=== PATIENT | female | born 1965 | race Caucasian/White ===

== ENCOUNTER 2020-04-28 14:01 | Outpatient (CLI) | payer OTHER, SELFPAY ==
--- NOTE | ~2020-04-28 | US_ITS ---
EXAMINATION: US art doppler w press LE BI DATE: 04/28/2020 14:53 INDICATION: Peripheral arterial disease. TECHNIQUE: Segmental pressures and plethysmographic and Doppler waveforms of the brachial and lower e xtremity arteries were obtained. COMPARISON: None. FINDINGS: Right and left brachial artery pressures of 141 mm Hg and 147 mm Hg, respectively, are concordant (no rmal difference <= 30 mmHg). The right high-thigh pressure index is 1.05 (normal > 1.2). The right ankle-brachial index (PETER) is 0 .86 (normal >= 0.9-1.0). The right great toe-brachial index (TBI) is 0.65 (normal >= 0.65). The right lower extremity segmental pressure gradients are normal (normal gradients <= 20-30 mmHg between khris cent levels on the same leg or the same levels on the two legs). Arterial Doppler waveforms are bipha sic from common femoral artery to the ankle. The left high-thigh pressure index is 0.76. The left PETER is 0.62. The left TBI is 0.41. The left lowe r extremity segmental pressure gradients are normal. Arterial Doppler waveforms are biphasic from com mon femoral artery to the ankle. IMPRESSION: 1. Mildly decreased right PETER and moderately decreased left PETER, consistent with arterial occlusive d isease, likely prominently in the aortoiliofemoral distributions. Reviewed, dictated and finalized at location A. IAL DISTRIBUTION CLERK IMPRESSION: 1. Mildly decreased right PETER and moderately decreased left PETER, consistent wit h arterial occlusive disease, likely prominently in the aortoiliofemoral distri butions.
== END 2020-04-28 14:02 | disposition home or self-care (01) ==
PROVIDERS: Visit Provider Podiatrist Foot & Ankle Surgery
DX: I73.9 Peripheral vascular disease, unspecified (principal)
CPT/HCPCS: 93923

== ENCOUNTER 2020-11-12 10:36 | Outpatient (CLI) | payer OTHER, SELFPAY ==
--- NOTE | ~2020-11-12 | CT_ITS ---
EXAMINATION: CT lung screening EXAM DATE: 11/12/2020 11:07 INDICATION: Z87.891 - Personal history of nicotine dependence TECHNIQUE: Spiral low dose CT of the chest without contrast. Axial, coronal and sagittal images were reviewed. The dose-length product (DLP) for this examination was 454.19 mGy-cm. The exposure was t ailored according to patient size (auto mA exposure control), and iterative reconstruction (ASIR) was used as additional dose reduction technique. Comparison is made to prior examination from 12/11/2017. FINDINGS: The lungs are clear. There is mild emphysema. Tracheobronchial tree is patent. There is no mediastinal, hilar or axillary lymphadenopathy. There are no pleural or pericardial effusions. There is no pneumothorax. Heart normal in size. There is mild to moderate coronary arterial calc ification, arterial sclerosis. Surgical changes along stomach greater curvature. Cholecystectomy c lips. There is thoracic spondylosis without osteoblastic or osteolytic lesions identified. IMPRESSION: Lung-RADS category 1, negative (<1%chance of malignancy); recommend continued LDCT screen ing in 1 year. > Reviewed, dictated and finalized at location B. IMPRESSION: Lung-RADS category 1, negative (<1%chance of malignancy); recommend continued LDCT screening in 1 year. >
== END 2020-11-12 10:37 | disposition home or self-care (01) ==
LOC: ANHIMG 10:42
PROVIDERS: Visit Provider Nurse Practitioner Family
DX: Z12.2 Encounter for screening for malignant neoplasm of respiratory organs (principal); Z87.891 Personal history of nicotine dependence
CPT/HCPCS: 71271

== ENCOUNTER 2021-11-14 10:48 | Outpatient (CLI) | payer OTHER, SELFPAY ==
--- NOTE | ~2021-11-14 | CT_ITS ---
EXAMINATION: CT lung screening DATE: 11/14/2021 11:08 INDICATION: Personal history of nicotine dependence TECHNIQUE: Computed tomography (CT) of the chest was performed without intravenous contrast. The dose -length product was 402.65 mGy-cm. Automated exposure control and iterative reconstruction technique were employed. COMPARISON: CT dated 11/12/2020 FINDINGS: Trace pericardial effusion. No significant pleural or pericardial effusion. There are surgi jay changes consistent with previous cholecystectomy and gastric bypass surgery. There is atheroscler osis of the aorta and coronary arteries. There is a 6 mm groundglass nodule in the left upper lobe, i mage 30. There are a few scattered 1-2 mm nodules in the upper lobes predominantly. No endobronchial lesions. There are focal groundglass densities in the right lower lobe. Mild thoracic spondylosis. No acute osseous abnormality. IMPRESSION: 1. Lung-RADS category 2: Benign appearance or behavior. Continue annual screening with noncontrast lo w-dose chest CT in 12 months. Reviewed, dictated and finalized at location A. IMPRESSION: 1. Lung-RADS category 2: Benign appearance or behavior. Continue annual screeni ng with noncontrast low-dose chest CT in 12 months.
== END 2021-11-14 10:49 | disposition home or self-care (01) ==
PROVIDERS: Visit Provider Nurse Practitioner Family
DX: Z12.2 Encounter for screening for malignant neoplasm of respiratory organs (principal); Z87.891 Personal history of nicotine dependence
CPT/HCPCS: 71271

== ENCOUNTER → 2022-01-12 12:30 | Outpatient (CLI) | payer OTHER, SELFPAY ==
--- NOTE | ~2022-01-12 | MR_ITS ---
EXAMINATION: MR wrist LT wo con DATE: 01/12/2022 13:11 INDICATION: Left wrist pain. TECHNIQUE: Magnetic resonance imaging (MRI) of the left wrist was performed without intravenous contr ast. Sequences performed include axial PD-weighted FSE and PD-weighted FS FSE, coronal PD-weighted FS FSE and T1-weighted SE, and sagittal PD-weighted FS FSE and PD-weighted FSE. COMPARISON: None FINDINGS: Intrinsic ligaments: Partial tear at the central membranous component of the scapholunate ligament. The physiologically si gnificant dorsal and volar components of the ligament remain normal. The lunotriquetral ligament is n ormal. Triangular fibrocartilage complex (TFCC): The triangular fibrocartilage including its foveal and styloid attachments as well as the dorsal and volar radioulnar ligaments are normal. The ulnar collateral ligament, ulnotriquetral ligament and men iscal homologue are normal. The extensor carpi ulnaris tendon sheath is normal. Extensor wrist: Mild tendinopathy and focal longitudinal split tear of the extensor carpi ulnaris tendon at the level of the tip of the ulnar styloid process. The more proximal and distal tendon remain normal. More pro minent thickening and mild increased signal without discrete tear of the distalmost abductor pollicis longus tendon which could be related to either tendinopathy or posttraumatic contusion without discr ete tear The remaining extensor tendons of the wrist are normal. No tenosynovitis. Flexor wrist: The flexor tendons of the wrist are normal. No abnormality in the carpal tunnel with normal median n erve. Guyon's canal: Guyon's canal including the ulnar nerve and artery are normal. Bones/other: Mild bone marrow edema at the palmar aspect of the trapezium with some overlying mild soft tissue javed ma which given history of recent fall could be most consistent with a posttraumatic bone and soft tis pedro contusion. Otherwise normal marrow signal. No fracture, erosions, avascular necrosis or abnormal marrow replacing process. Joint spaces are normal with no focal cartilage defects appreciated. Subtl e edema in the subcutaneous tissues at the palmar/radial aspect of the carpus IMPRESSION: 1. Bone contusion without discrete fracture at the palmar aspect of the trapezium with mild overlying soft tissue edema. 2. Tendinopathy without discrete tear at the distalmost abductor pollicis longus which given history of trauma and proximity to the trapezium marrow edema and overlying soft tissue edema as well as refl ex post traumatic contusion. 3. Focal mild tendinopathy and longitudinal split tear of the extensor carpi ulnaris tendon at the le gigi of the tip of the ulnar styloid process. 4. Small partial tear of the central membranous component of the scapholunate ligament with normal ap pearance to the physiologically significant dorsal and volar components of the ligament. Reviewed, dictated and finalized at location A. IMPRESSION: 1. Bone contusion without discrete fracture at the palmar aspect of the trapezi um with mild overlying soft tissue edema. 2. Tendinopathy without discrete tear at the distalmost abductor pollicis longu s which given history of trauma and proximity to the trapezium marrow edema and overlying soft tissue edema as well as reflex post traumatic contusion. 3. Focal mild tendinopathy and longitudinal split tear of the extensor carpi ul naris tendon at the level of the tip of the ulnar styloid process. 4. Small partial tear of the central membranous component of the scapholunate l igament with normal appearance to the physiologically significant dorsal and vo lar components of the ligament.
== END ==
PROVIDERS: Visit Provider Orthopaedic Surgery
DX: S66.912A Strain of unspecified muscle, fascia and tendon at wrist and hand level, left hand, initial encounter (principal); S63.502A Unspecified sprain of left wrist, initial encounter; M89.9 Disorder of bone, unspecified
CPT/HCPCS: 73221

== ENCOUNTER → 2022-04-10 13:18 | Outpatient (CLI) | payer OTHER, SELFPAY ==
--- NOTE | ~2022-04-10 | XR_ITS ---
EXAMINATION: XR chest 2V 04/10/2022 13:37 INDICATION: Cough PROCEDURE: 2 view chest COMPARISON: 11/22/2016 FINDINGS: The lungs are clear. The cardiomediastinal silhouette is within normal limits. There are no pleural effusions. There is no pneumothorax suspected. IMPRESSION: 1: NO ACUTE CARDIOPULMONARY DISEASE. Reviewed, dictated and finalized at location A. TAGGER
== END ==
PROVIDERS: Visit Provider Nurse Practitioner Family
DX: R05.9 Cough, unspecified (principal); R06.00 Dyspnea, unspecified; M54.9 Dorsalgia, unspecified
CPT/HCPCS: 71046

== ENCOUNTER 2022-04-14 12:00 | Outpatient (CLI) | payer OTHER, SELFPAY ==
[2022-04-14 12:56] LABS: Influenza A QL RT-PCR Negative (Negative); Influenza B QL RT-PCR Negative (Negative); RSV RNA, RT-PCR Negative (Negative); SARS-CoV-2 RNA PCR Negative
== END 2022-04-14 12:01 | disposition home or self-care (01) ==
LOC: ANHLAB 12:01
PROVIDERS: Visit Provider Nurse Practitioner Family
DX: R06.00 Dyspnea, unspecified (principal); R05.9 Cough, unspecified
CPT/HCPCS: 87637

== ENCOUNTER 2022-04-21 10:24 | Outpatient (CLI) | payer OTHER, SELFPAY ==
[2022-04-21 11:49] LABS: Basophils Absolute Auto 0.1 K/mm3 (0.0-0.1); Basophils Percent Auto 0.7 % (0.2-1.2); Eosinophils Absolute Auto 0.4 K/mm3 (0-0.3); Eosinophils Percent Auto 2.7 % (0-4.4); Hematocrit 39.2 % (37.0-47.0); Hemoglobin 13.1 g/dL (12.0-15.0); Immature Granulocyte Absolute 0.08 K/mm3 (0.00-0.031); Immature Granulocyte Percent A 0.6 % (0-0.5); Lymphocytes Absolute Auto 3.84 K/mm3 (0.9-3.2); Lymphocytes Percent Auto 27.7 % (18.3-44.2); Mean Corpuscular HGB Conc 33.4 g/dl (32-36); Mean Corpuscular Volume 89.7 fl (80-100); Monocytes Absolute Auto 0.8 K/mm3 (0.1-0.6); Monocytes Percent Auto 5.8 % (2.6-8.5); Neutrophils Absolute Auto 8.7 K/mm3 (1.3-6.7); Neutrophils Percent Auto 62.5 % (45.5-73.1); Platelet Count Result 308 k/mm3 (150-375); Red Blood Count 4.37 M/mm3 (4.2-5.4); Red Cell Distribution Width 14.9 % (11.5-14.5); White Blood Count 13.9 K/mm3 (4.5-10.0)
[2022-04-26 00:29] LABS: Immunoglobulin E 13 kU/L (<=114)
== END 2022-04-21 10:25 | disposition home or self-care (01) ==
LOC: ANHLAB 10:25
PROVIDERS: PCP Nurse Practitioner Family; Visit Provider Nurse Practitioner Family
DX: J45.909 Unspecified asthma, uncomplicated (principal)
CPT/HCPCS: 36415; 82785; 85025

== ENCOUNTER 2022-11-27 08:44 | Outpatient (CLI) | payer OTHER, SELFPAY ==
--- NOTE | ~2022-11-27 | CT_ITS ---
CT Scan of the Chest without Contrast: Clinical Indication: Lung cancer screening, smoking history Technique: Contiguous sections were acquired throughout the chest without intravenous contrast. Dose reduction technique was used on this scan by utilizing automated exposure control and iterative recon struction technique. The dose-length product (DLP) was 469.09 mGy-cm. COMPARISON: 11/14/2021, 11/12/2020 Findings: There is no evidence of any significant mediastinal, hilar or axillary lymphadenopathy. Coronary billie ry calcifications are noted. There is no evidence of pleural or pericardial effusion. The lungs are clear. No pulmonary nodules or infiltrates are noted. Images through the upper abdomen reveal no abnormalities. Impression: Lung RADS 1: Negative. 12 month follow-up screening CT advised. Reviewed, dictated and finalized at [facility]. Impression: Lung RADS 1: Negative. 12 month follow-up screening CT advised.
== END 2022-11-27 08:45 | disposition home or self-care (01) ==
PROVIDERS: PCP Nurse Practitioner Family; Visit Provider Nurse Practitioner Family
DX: Z12.2 Encounter for screening for malignant neoplasm of respiratory organs (principal); Z87.891 Personal history of nicotine dependence
CPT/HCPCS: 71271

== ENCOUNTER 2023-05-21 10:50 | Outpatient (CLI) | payer OTHER, SELFPAY ==
--- NOTE | ~2023-05-21 | XR_ITS ---
AP and oblique views of the left ribs, and PA and lateral chest radiographs Clinical History: Pain Findings: No rib fracture is seen. Osseous alignment is anatomic. Lungs are clear, without focal cons olidation or pleural effusion. Cardiomediastinal contour is within normal limits. Soft tissues are un remarkable. Impression: No rib fracture is seen. Reviewed, dictated and finalized at [facility]. MAN Impression: No rib fracture is seen.
== END 2023-05-21 10:51 | disposition home or self-care (01) ==
LOC: ANHIMG 10:52
PROVIDERS: PCP Nurse Practitioner Family; Visit Provider Nurse Practitioner Family
DX: R06.09 Other forms of dyspnea (principal); S29.9XXA Unspecified injury of thorax, initial encounter; X58.XXXA Exposure to other specified factors, initial encounter
CPT/HCPCS: 71046; 71100

== ENCOUNTER 2023-11-29 08:09 | Outpatient (CLI) | payer OTHER, SELFPAY ==
--- NOTE | ~2023-11-29 | CT_ITS ---
EXAMINATION: CT lung screening DATE: 11/29/2023 08:28 INDICATION: Lung cancer screening. History of tobacco dependence. TECHNIQUE: Computed tomography (CT) of the chest was performed without intravenous contrast. The dose -length product was 202.31 mGy-cm. Automated exposure control and iterative reconstruction technique were employed. COMPARISON: CT dated 11/27/2022 FINDINGS: No significant pleural or pericardial effusion. Heart size normal. No significant pleural o r pericardial effusion. No thoracic lymphadenopathy. Status post cholecystectomy. No endobronchial le sions. No pneumothorax. There are surgical changes in the stomach. There is atherosclerosis of the ao rta and coronary arteries. No suspicious pulmonary nodules or masses. IMPRESSION: 1. Lung-RADS category 1: Negative. Continue annual screening with noncontrast low-dose chest CT in 12 months. Reviewed, dictated and finalized at location B. IMPRESSION: 1. Lung-RADS category 1: Negative. Continue annual screening with noncontrast l ow-dose chest CT in 12 months.
== END 2023-11-29 08:10 | disposition home or self-care (01) ==
PROVIDERS: Visit Provider Nurse Practitioner Family
DX: Z12.2 Encounter for screening for malignant neoplasm of respiratory organs (principal); Z87.891 Personal history of nicotine dependence
CPT/HCPCS: 71271

== ENCOUNTER 2024-12-01 09:34 | Outpatient (CLI) | payer OTHER, SELFPAY ==
--- NOTE | ~2024-12-01 | CT_ITS ---
CT Scan of the Chest without Contrast: Clinical Indication: Lung cancer screening, nicotine dependence Technique: Contiguous sections were acquired throughout the chest without intravenous contrast. Dose reduction technique was used on this scan by utilizing automated exposure control and iterative recon struction technique. The dose-length product (DLP) was 106.64 mGy-cm. COMPARISON: 11/29/2023 Findings: There is no evidence of any significant mediastinal, hilar or axillary lymphadenopathy. The mediastin al soft tissues appear normal. There is no evidence of pleural or pericardial effusion. 3 mm right upper lobe nodule present (axial image 30). Images through the upper abdomen reveal no abnormalities. Impression: Lung RADS 2: Benign appearance. 12 month follow-up screening CT advised. Reviewed, dictated and finalized at location . Impression: Lung RADS 2: Benign appearance. 12 month follow-up screening CT advised.
--- OUTSIDE RECORDS SUMMARY | 2024-12-01 09:57 | XMS_ITS | Clinical Summary ---
Author Organization [facility] Address [address] [place] [address] Care Team Providers Care Java Software Developer Name Role Phone Catrachito Schultz MD Primary Care Provider [phone] Allergies Active Allergy Reactions Criticality Noted Date Comments Adenosine Shortness of Breath High 12/29/2021 Sulfa Antibiotics Rash,Hives High 09/24/2012 Medications albuterol sulfate HFA 108 (90 Base) MCG/ACT inhaler 2 Active ALPRAZolam 0.25 MG tablet 1 Active atenolol 100 MG tablet 2 Active buPROPion XL 300 MG 24 hr tablet 2 Active TRULICITY 0.75 MG/0.5ML injection ADMINISTER 0.75 MG UNDER THE SKIN EVERY 7 DAYS 1 Active escitalopram 5 MG tablet 2 Active HUMALOG 100 UNIT/ML injection (VIAL) 2 Active levothyroxine 100 MCG tablet Take 100 mcg by mouth. Active metFORMIN ER 500 MG 24 hr tablet 1 Active montelukast 10 MG tablet 2 Active nortriptyline 25 MG capsule 1 Active rosuvastatin 40 MG tablet 2 Active Active Problems Problem Noted Date Diagnosed Date S/P cervical spinal fusion 10/12/2022 Vertigo 03/22/2021 Lumbar radiculopathy 03/22/2021 Immunizations Immunization Administration Dates Next Due MODERNA COVID-19 (12+) MRNA, LNP-S, PF, 100 MCG/ 0.5 ML DOSE 06/08/2020,05/11/2020 Social History Tobacco Use Types Packs/Day Years Used Date Smoking Tobacco: Former Cigarettes Q uit: 2019 Smokeless Tobacco: Never Alcohol Use Standard Drinks/Week Comments Yes 0 (1 standard drink = 0.6 oz pur e alcohol) rarely Comments No Sex and Gender Information Value Date Recorded Sex Assigned at Female 07/02/2024 3:36 PM LINING IRONER Legal Sex Female 5:52 PM CDT Gender Identity Not on file Sexual Orientation Not on file Last Filed Vital Signs Vital Sign Reading Time Taken Comments Blood Pressure 151/51 12/29/2021 4:06 PM CDT Pulse 72 12/29/2021 4:06 PM CDT Temperature 36.2 C (97.2 F) 12/29/2021 4:08 PM CDT Respiratory Rate 18 12/29/2021 4:06 PM CDT Oxygen Saturation 97% 12/29/2021 4:06 PM CDT Inhaled Oxygen Concentration - - Weight 109.8 kg (242 lb) 12/29/2021 4:06 PM CDT Height 162.6 cm (5' 4) 12/29/2021 4:06 PM CDT Body Mass Index 41.54 12/29/2021 4:06 PM CDT Plan of Treatment Health Maintenance Due Date Last Done Comments Colorectal Cancer Screening Colonoscopy (10 Years) 1965 Annual Physical 1967 COVID-19 Vaccine ( season) 2024 06/08/2020, 05/11/2020 RSV Immunization or 60+ Years (1 - Risk 60-74 years 1-dose series) 2024 DTaP, Tdap and Td Vaccines (3 - Td or Tdap) 11/19/2024 11/19/2014, 10/28/2010 Mammogram Screening 08/02/2025 08/03/2023, 03/29/2022, 01/26/2021, Additional history exists Zoster Vaccines Completed 10/27/2022, 11/18/2021 Pneumococcal Vaccine: 50+ Years Completed 01/31/2023, 03/15/2016 Hepatitis C Completed 05/19/2024, 05/19/2024 Meningococcal B Vaccine Aged Out No l onger eligible based on patient's age to complete this topic Meningococcal Vaccine Aged Out No brittani master eligible based on patient's age to complete this topic RSV Immunizations Under 20 Months Aged Out No longer eligible based on patient's age to complete this topic Insurance [facility] Care Teams Java Software Developer Relationship Specialty Start Date End Date Catrachito Schultz MD [address] [facility] [address] [place] [address] PCP - General INTERNAL MEDICINE 10/03/21
--- OUTSIDE RECORDS SUMMARY | 2024-12-01 09:59 | XMS_ITS | Encounter Summary ---
Author Organization [facility] Address [address] [address] Care Team Providers Care 411 Directory Assistance Operator Name Role Phone Catrachito Schultz MD Primary Care Provider [phone] Catrachito Schultz MD Primary Care Provider [phone] Roland Jerome MD Unavailable Michael Mullen MD Unavailable [phone] Unruly Borges Unavailable [phone] Catrachito Schultz MD Primary Care Provider [phone] Encounter Details Date Type Department Care Team (Late st Contact Info) Description 09/01/2016 Orders Only [facility] Provider, MD Brandt [address] [place] [id number] Social History Tobacco Use Types Packs/Day Years Used Date Smoking Tobacco: Heavy Smoker Comments:Smoking History Pac ks/day: 10 Cigarettes Alcohol Use Standard Drinks/Week Comments Yes 0 (1 standard drink = 0.6 oz pur e alcohol) Comments Unknown Sex and Gender Information Value Date Recorded Sex Assigned at Not on file Legal Sex Female 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 us Historical Provider [facility] Final Result documented in this encounter Visit Diagnoses Not on filedocumented in this encounter Additional Health Concerns Infection Onset Date Last Indicated Resolved Time COVID: Recovered Comment:06/06/21: Patient COVID+ at [facility] 05/22/21 (scan can be seen in Media tab). Patient was not hospitalized. Reports symptoms have resolved, including fever. It has been >10 days since symptom onset. Patient not severely immunocompromised and did not require home O2. Patient satisfies COVID: Recovered criteria. Repeat testing not recommended for 120 days following Recovered period onset date of 06/02/21. Janelle Caldwell 06/02/2021 06/06/2021 09/30/2021 3:05 AM C DT COVID: Suspected 08/27/2023 08/27/2023 08/27/2023 7:37 PM CDT COVID: Suspected 06/23/2024 06/23/2024 06/23/2024 5:51 PM SPOOLING MACHINE OPERATOR Influenza, adult 06/23/2024 06/23/2024 06/30/2024 3:07 AM SPOOLING MACHINE OPERATOR documented as of this encounter Care Teams 411 Directory Assistance Operator Relationship Specialty Start Date End Date Catrachito Schultz MD PCP - General 08/04/16 02/15/21 Catrachito Schultz MD PCP - General Internal Medicine 03/01/21 07/16/22 Catrachito Schultz MD [address] [facility] [address] [place] [address] PCP - General Internal Medicine 07/17/22 Roland Jerome MD [address] [facility] [address] [place] [address] Surgeon Neurosurgery 05/07/14 Michael Mullen MD [address] [facility] [address] [address] Surgeon Orthopedic Surgery 05/07/22 Unruly Borges PA [address] [facility] [address] [address] Physician Steel Pourer Helper Neurosurgery 07/04/22 documented as of this encounter
--- OUTSIDE RECORDS SUMMARY | 2024-12-01 10:00 | XMS_ITS | Clinical Summary ---
Author Organization [facility] Address [address] [place] [address] Care Team Providers Care Order Expediter Name Role Phone Roland Jerome MD Unavailable [phone] Michael Mullen MD Unavailable [phone] Unruly Borges Unavailable [phone] Catrachito Schultz MD Primary Care Provider [phone] Allergies Active Allergy Reactions Criticality Noted Date Comments Adenosine Shortness of breath High Sulfa (Sulfonamide Antibiotics) Hives,Rash High Medications montelukast (SINGULAIR) 10 mg tablet Take 1 tablet (10 mg total) by mouth nightly Active cholecalciferol (VITAMIN D-3) 5,000 unit capsule Take 1 capsule (5,000 Units total) by mouth every morning Active albuterol HFA (PROVENTIL HFA,VENTOLIN HFA,PROAIR HFA) 90 mcg/actuation inhaler Inhale 2 puffs as needed for wheezing Active budesonide-formote roL (Symbicort) 160-4.5 mcg/actuation inhaler Inhale 2 puffs 2 (two) times a day Rinse mouth with water after use. Do not swallow. 1 each 11/19/19 22 Active cyanocobalamin, vitamin B-12, 5,000 mcg tablet, sublingual Place 5,000 mcg under the tongue every morning Active albuterol 2.5 mg/0.5 mL solution for nebulizationIndica tions:Bronchospasm Prevention Take 0.5 mL (2.5 mg total) by nebulization every 6 (six) hours as needed (wheezing) 30 each 08/31/19 23 Active glucagon (Baqsimi) 3 mg/actuation spray,non-aerosol Administer 1 spray into one nostril as needed (hypoglycemia) 2 each 1 10/26/19 23 Active azelastine (ASTELIN) 137 mcg (0.1 %) nasal spray Administer 1 spray into each nostril nightly 02/08/20 23 Active lancets (Accu-Chek Softclix Lancets) misc 4 per day 100 each 3 07/30/19 24 Active ondansetron ODT (ZOFRAN-ODT) 4 mg disintegrating tablet Take 1 tablet (4 mg total) by mouth every 8 (eight) hours as needed for nausea or vomiting 60 tablet 3 07/30/19 24 Active blood-glucose meter misc Use daily or as directed for monitoring of diabetes. 1 each 10/17/19 24 Active buPROPion XL (WELLBUTRIN XL) 300 mg 24 hr tablet Take 1 tablet (300 mg total) by mouth every morning Active escitalopram (LEXAPRO) 5 mg tablet TAKE 1 TABLET DAILY 90 tablet 3 12/24/19 24 Active insulin lispro (HumaLOG) 100 unit/mL vial for injection INJECT UP TO 120 UNITS DAILY IN DIVIDED DOSES VIA PUMP 110 mL 3 01/17/20 24 Active rosuvastatin (CRESTOR) 40 mg tablet TAKE 1 TABLET DAILY 90 tablet 3 02/28/20 24 Active blood glucose diagnostic (OneTouch Verio test strips) strip Test 4 times a day DX E11.8 100 strip 3 03/03/20 24 Active atenoloL (TENORMIN) 50 mg tablet TAKE 1 TABLET NIGHTLY 90 tablet 3 03/03/20 24 Active lisinopriL (PRINIVIL,ZESTRIL) 5 mg tablet TAKE 1 TABLET DAILY 90 tablet 3 03/05/20 24 Active docusate sodium (COLACE) 100 mg capsuleIndications :constipation Take 1 capsule (100 mg total) by mouth nightly Active levothyroxine (SYNTHROID) 125 mcg tablet Take 1 tablet (125 mcg total) by mouth daily 90 tablet 4 04/07/20 24 Active acetaminophen (TYLENOL) 500 mg tablet Take 2 tablets (1,000 mg total) by mouth every 8 (eight) hours as needed for pain 90 tablet 04/08/20 24 Active aspirin 81 mg enteric coated tabletIndications: prevention of thrombosis Take 1 tablet (81 mg total) by mouth 2 (two) times a day 60 tablet 04/08/20 24 Active blood-glucose sensor (G[employer] G7 Sensor) device USE AND CHANGE SENSOR EVERY 10 DAYS 9 each 3 06/18/19 25 Active senna-docusate (PERICOLACE) 8.6-50 mg Take 2 tablets by mouth 2 (two) times a day 80 tablet 08/19/19 25 Active ALPRAZolam (XANAX) 0.25 mg tabletIndications: anxiety Take 1 tablet (0.25 mg total) by mouth 3 (three) times a day as needed for anxiety 60 tablet 5 08/20/[address] (PROTONIX) 40 mg EC tablet TAKE 1 TABLET DAILY 90 tablet 3 08/30/19 25 Active meloxicam (MOBIC) 15 mg tablet Take 1 tablet (15 mg total) by mouth daily 90 tablet 1 09/06/19 25 Active Additional Information Patient not taking.Reported on 11/26/2024 tirzepatide, weight loss, (Zepbound) 10 mg/0.5 mL solution vialIndications:We ight Loss Management for Obese Patient (BMI >= 30) Inject 0.5 mL (10 mg total) under the skin every 7 days 2 mL 3 09/27/19 25 Active amoxicillin (AMOXIL) 500 mg tablet/capsule TAKE FOUR TABLETS/CAPSULE S 1 HOUR PRIOR TO DENTAL PROCEDURE 4 tablet/caps ule 8 10/10/19 25 Active fluticasone propionate (FLONASE) 50 mcg/actuation nasal spray USE 1 SPRAY IN EACH NOSTRIL DAILY 16 g 5 10/21/19 25 Active insulin glargine (LANTUS) 100 unit/mL (3 mL) pen for injection Inject 30 lantus if pump fails same time everyday. 6 mL 3 10/22/19 25 Active fexofenadine HCl (DIANNA ALLERGY ORAL) Take by mouth every morning 025 Discontin ued(Drew nt Reported) Active Problems Problem Noted Date Diagnosed Date Bronchiolitis due to influenza virus 07/17/2024 Assessment & Plan (07/17/2024 4:29 PM CDT): Patient is struggling tapering off the steroids. Recent chest x-ray showed thickening of the large bronchials. At this time she is going to be placed on 20 mg of prednisone daily as well as a round of Omnicef. She is dehydrated in the office today she is going to receive IV fluids. S/P right unicompartmental knee replacement 07/2023 Primary osteoarthritis of right knee 11/26/2023 Assessment & Plan (03/24/2024 10:52 AM DINKEY SKINNER): Worsening. Patient has been getting quarterly steroid injections. She is ready to proceed with a partial knee replacement. Ecchymosis 11/23/2023 Bruising, spontaneous 10/17/2023 Assessment & Plan (11/23/2023 3:52 PM CDT): Likely due to frequent steroid injections. Assessment & Plan (10/17/2023 10:54 AM CDT): Patient is concerned with the elevated white count as well as the son onset of severe bruising. Labs include a PT PTT and CBC will be obtained today Hyponatremia 08/28/2023 Assessment & Plan (10/17/2023 10:53 AM CDT): Stable. A renal function panel will be obtained today. Assessment & Plan (08/28/2023 12:52 PM CDT): Patient did receive 2 L of fluids while she was in the emergency room. I would like to repeat her sodium and make sure that it is back to normal. Unfortunately she still feels horrible. Cramping of hands 08/28/2023 Assessment & Plan (08/28/2023 12:53 PM CDT): A magnesium level will be checked to make sure that has not playing a role in the hand cramping Bruit of right carotid artery 07/30/2023 Assessment & Plan (07/30/2023 4:17 PM CDT): Patient has an asymptomatic right carotid bruit. An ultrasound has been ordered Abdominal pain 04/18/2023 Assessment & Plan (04/18/2023 11:20 AM DINKEY SKINNER): Labs including an amylase and lipase will be obtained to rule out pancreatitis. Screening breast examination 04/18/2023 Lightheadedness 09/21/2022 Assessment & Plan (09/21/2022 11:09 AM CDT): Unclear etiology. Not a blood pressure or blood glucose issue. Check labs today. Follow up with PCP and surgeon if symptoms persist. S/P cervical disc replacement 08/28/2022 Cervical radiculopathy 07/04/2022 Numbness 07/04/2022 Carpal tunnel syndrome, bilateral 06/12/2022 Overview (06/12/2022): Added automatically from request for surgery [id number] Asthmatic bronchitis 04/17/2022 Assessment & Plan (06/22/2022 9:42 PM DINKEY SKINNER): Patient is still struggling with a post viral cough and wheezing. She is on Symbicort in addition to nebulized albuterol and albuterol MDI eyes. She uses her nebulizer at least twice a day in the [place] when she is at school. Assessment & Plan (04/17/2022 11:09 AM DINKEY SKINNER): Patient will continue nebulizer therapy. She will complete her steroid taper and has already completed her antibiotics. At this time I do not believe she would benefit from additional antibiotics. She can use [id number] cough suppressants as needed. A CBC and renal function panel will be obtained. If these are normal she can return to work at this time. Need for vaccination 02/03/2022 Assessment & Plan (02/03/2022 12:34 PM CDT): A flu shot was given in the office today. Familial polyposis 11/18/2021 Assessment & Plan (11/18/2021 9:48 AM CDT): Patient await has multiple polyps she will continue colonoscopy every 2 years. Encounter for surgical after care following surgery on the circulatory system 07/22/2021 Sleep difficulties 05/03/2021 Assessment & Plan (11/18/2021 9:44 AM CDT): Patient will try melatonin. Sensorineural hearing loss (SNHL) of both ears 1 07/03/2020 Subjective cognitive impairment 03/14/2021 Overview (08/06/2023): Clinical dementia ratin in all categories, not a progressive dementia Assessment & Plan (10/06/2024 8:23 AM CDT): Overall, stable cognitive testing. Acetylcholinesterase inhibitors not indicated at this time. She states that she does not take alprazolam/Xanax often (around two times a month). Follow-up in 1 year or sooner if need be. Assessment & Plan (08/06/2023 9:42 AM CDT): Eliminate or reduce use of alprazolam (only uses Reviewed warning signs of AD, patient is concerned her may have some memory and thinking problems, she will speak to her daughter, review the warning signs and have her send me a My Chart message if she has concerns. We discussed how AD is diagnosed. Assessment & Plan (03/14/2021 12:03 PM DINKEY SKINNER): At this time the patient scores well on her slums test. [facility] referral to [facility] will be made for further evaluation and treatment. Peripheral vascular disease (CMS/HCC) 05/11/2020 Assessment & Plan (05/19/2024 2:57 PM DINKEY SKINNER): Stable continue antiplatelet therapy Assessment & Plan (07/30/2023 4:17 PM CDT): Stable. Continue antiplatelet therapy. Assessment & Plan (06/22/2022 9:42 PM DINKEY SKINNER): Stable. Continue antiplatelet therapy. Assessment & Plan (02/03/2022 12:34 PM CDT): Stable. Patient has no ulcers at this time. Assessment & Plan (11/18/2021 9:49 AM CDT): Patient will continue anti-platelet therapy. She does have decreased pulses in her legs but no symptoms of claudication. She is status post an aortobifemoral bypass but did not quit smoking until last year Assessment & Plan (06/01/2020 7:26 AM DINKEY SKINNER): Healing cardiac catheterization sites groins bilaterally. Continue aspirin. Follow-up with vascular surgery 06/22/20 with arterial ultrasound schedule that day Assessment & Plan (05/27/2020 9:25 AM DINKEY SKINNER): - OR 05/27 for kissing iliac stents 05/27 - Bedrest x2 hours - Aspirin daily - OOB this afternoon, pérez out at that time Assessment & Plan (05/16/2020 7:59 PM DINKEY SKINNER): Patient has evidence of peripheral artery disease. A referral to vascular Assessment & Plan (05/12/2020 8:56 AM DINKEY SKINNER): No claudication. Has appointment with vascular surgery. Essential hypertension 12/01/2019 Assessment & Plan (10/21/2024 2:50 PM CDT): At goal on current therapy. Assessment & Plan (07/03/2024 12:42 PM DINKEY SKINNER): Mildly elevated today. Will monitor on current regimen. Assessment & Plan (03/11/2024 12:35 PM DINKEY SKINNER): At goal on current therapy. Assessment & Plan (11/23/2023 3:51 PM CDT): At goal on current therapy. Assessment & Plan (07/30/2023 9:17 AM CDT): At goal on current therapy. Assessment & Plan (03/28/2023 10:14 AM DINKEY SKINNER): Having orthostatic symptoms at home. Halve atenolol dose to 50 mg daily. Continue lisinopril. Assessment & Plan (12/13/2022 10:33 AM CDT): At goal on current therapy. Assessment & Plan (10/27/2022 12:57 PM CDT): Blood pressure is under good control. No change in therapy was recommended. Assessment & Plan (09/21/2022 11:08 AM CDT): At goal on current therapy. Assessment & Plan (07/17/2022 10:17 AM CDT): At goal on current therapy. Assessment & Plan (06/29/2022 10:37 AM DINKEY SKINNER): Continue lisinopril and atenolol. Follow low-sodium diet Assessment & Plan (03/29/2022 12:35 PM DINKEY SKINNER): The patient was instructed to follow a low-sodium diet. Medications will be continued as prescribed. Where possible refills for 90 days were given. Weight loss remains very important. Assessment & Plan (02/05/2022 9:21 PM CDT): Continue atenolol. Follow low-sodium diet. Assessment & Plan (02/03/2022 12:33 PM CDT): Blood pressures been running a little soft. We will decrease the atenolol to 50 mg daily and monitor her pressure Assessment & Plan (11/23/2021 1:20 PM CDT): Continue lisinopril. Follow low-sodium diet. Assessment & Plan (11/18/2021 9:46 AM CDT): Blood pressure is adequately controlled on her current regimen. No change in medications were recommended. Assessment & Plan (05/23/2021 10:00 AM DINKEY SKINNER): Continue lisinopril and atenolol. Low-salt diet Assessment & Plan (01/26/2021 9:27 AM CDT): Stable on Lisinopril and atenolol. Continue Low salt diet. Assessment & Plan (08/24/2020 10:25 PM CDT): Stable on lisinopril and atenolol. Continue low-salt diet Assessment & Plan (06/01/2020 7:26 AM DINKEY SKINNER): Blood pressure is well controlled. Reviewed low sodium diet and hidden sources of sodium in the diet to avoid. Assessment & Plan (05/16/2020 7:56 PM DINKEY SKINNER): Blood pressure is still not adequately controlled. Will continue to work on blood pressure control. Assessment & Plan (05/12/2020 8:55 AM DINKEY SKINNER): Normotensive. Continue current regimen. Assessment & Plan (12/01/2019 1:42 PM CDT): Well controlled. Continue current regimen Hx of colonic polyp 11/05/2019 Overview (11/05/2019): Added automatically from request for surgery [id number] Annual physical exam 03/09/2019 Assessment & Plan (08/01/2023 10:19 AM CDT): Comprehensive laboratory studies will be obtained. The patient was instructed to follow a prudent diet and exercise program. We have reviewed all medications and where appropriate 90 day refills were given. A heart healthy diet was provided. Assessment & Plan (11/18/2021 9:43 AM CDT): Comprehensive laboratory studies will be obtained. The patient was instructed to follow a prudent diet and exercise program. We have reviewed all medications and where appropriate 90 day refills were given. A heart healthy diet was provided. Assessment & Plan (08/30/2020 10:09 AM CDT): Comprehensive laboratory studies will be obtained. The patient was instructed to follow a prudent diet and exercise program. We have reviewed all medications and where appropriate 90 day refills were given. A heart healthy diet was provided. Assessment & Plan (03/09/2019 5:04 PM DINKEY SKINNER): Comprehensive laboratory studies will be obtained. The patient was instructed to follow a prudent diet and exercise program. We have reviewed all medications and where appropriate 90 day refills were given. A heart healthy diet was provided. Obesity (BMI 30-39.9) 03/03/2019 Assessment & Plan (10/21/2024 4:31 PM CDT): She is on Zepbound. Class 1 obesity due to exces s calories with body mass index (BMI) of 32.0 to 32.9 in adult 02/13/2019 Assessment & Plan (03/24/2024 10:52 AM DINKEY SKINNER): Continue with a prudent diet and exercise program. Patient is continuing to you lose weight on Mounjaro and her diabetes is under excellent control. Assessment & Plan (07/30/2023 4:16 PM CDT): Patient is continuing to lose weight and do generally well. She understands that as her weight improved so will her diabetic control. It has also made a difference on her joints. Assessment & Plan (01/31/2023 9:38 AM CDT): BMI Follow-up includes: nutrition counseling, exercise counseling, and education provided. Her BMI has improved from 43-41. Assessment & Plan (10/27/2022 8:27 AM CDT): BMI Follow-up includes: nutrition counseling, exercise counseling, and education provided. Assessment & Plan (08/04/2022 8:58 AM CDT): BMI Follow-up includes: nutrition counseling, exercise counseling and education provided. 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 Assessment & Plan (06/22/2022 9:43 PM DINKEY SKINNER): BMI Follow-up includes: nutrition counseling, exercise counseling and education provided. Patient reports that she is monitoring her oral intake and struggles to lose weight despite restricting her calories. Assessment & Plan (06/16/2022 8:36 AM DINKEY SKINNER): BMI Follow-up includes: nutrition counseling, exercise counseling and education provided. Assessment & Plan (04/17/2022 11:10 AM DINKEY SKINNER): Patient has been struggling to get her BMI under control. At this time she will continue with a prudent diet. Assessment & Plan (03/29/2022 8:12 AM DINKEY SKINNER): BMI Follow-up includes: nutrition counseling, exercise counseling and education provided. Assessment & Plan (02/03/2022 7:55 AM CDT): BMI Follow-up includes: nutrition counseling, exercise counseling and education provided. Assessment & Plan (11/18/2021 7:48 AM CDT): BMI Follow-up includes: nutrition counseling, exercise counseling and education provided. Assessment & Plan (06/02/2021 7:52 AM DINKEY SKINNER): BMI Follow-up includes: nutrition counseling, exercise counseling and education provided. Assessment & Plan (03/14/2021 8:03 AM DINKEY SKINNER): BMI Follow-up includes: nutrition counseling, exercise counseling and education provided. Assessment & Plan (01/26/2021 9:24 AM CDT): Instructed to follow consistent carb diet specifically 35-40 g with each meal and snack 15 g each. Emphasized the importance of increasing physical activity or participating in an exercise regimen as tolerated. Started Trulicity 0.75 mg today. Assessment & Plan (12/15/2020 2:47 PM CDT): BMI Follow-up includes: nutrition counseling, exercise counseling and education provided. Assessment & Plan (08/30/2020 10:11 AM CDT): BMI Follow-up includes: nutrition counseling, exercise counseling and education provided. Patient was instructed to go ahead and start the metformin that her hog grader prescribed Assessment & Plan (08/24/2020 10:26 PM CDT): Counseled on healthy diet and regular physical activity Metformin. Trial of Trulicity next visit Assessment & Plan (06/22/2020 9:49 AM DINKEY SKINNER): BMI Follow-up includes: nutrition counseling, exercise counseling and education provided. Assessment & Plan (05/31/2020 1:34 PM DINKEY SKINNER): BMI Follow-up includes: nutrition counseling, exercise counseling and education provided. Assessment & Plan (05/05/2020 1:14 PM DINKEY SKINNER): BMI Follow-up includes: nutrition counseling, exercise counseling and education provided. Assessment & Plan (12/01/2019 1:41 PM CDT): Counseled on healthy diet and regular physical activity Assessment & Plan (11/19/2019 10:15 AM CDT): BMI Follow-up includes: nutrition counseling, exercise counseling and education provided. Assessment & Plan (02/13/2019 9:58 AM CDT): BMI Follow-up includes: nutrition counseling, exercise counseling and education provided. Palpitations 02/13/2019 Assessment & Plan (02/14/2019 9:44 AM CDT): Patient has been placed on a monitor. We will continue her current treatment. At this time I have encouraged her to get up and ambulate as much as possible to try to recreate the dysrhythmias. If she is unable to do so we will put a 30 day event recorder on her at discharge. Assessment & Plan (02/13/2019 11:11 AM CDT): 3 week history of nonspecific symptoms including palpitations, nausea, diaphoresis, and generalized weakness that started after pt mowed the grass. ED visit 2 days ago with unremarkable up: nonspecific leukocytosis but normal CMP, troponin, TSH. CT abdomen without abnormality. VSS, afebrile, and exam unremarkable. RRR, no murmurs, no wheezing and clear breath sounds throughout. EKG in the office with LBBB, unchanged from prior. Giving her waxing and waning symptoms in someone who is at high-risk for heart disease with her hx of T1DM, HTN, HLD and obesity, concern she is having angina. Though she denies having chest pain, given she is a woman and type 1 diabetic, she might not have classic anginal symptoms. Suspicion for coronary disease is high enough to warrant inpatient admission for observation with workup including exercise stress test, TTE and monitoring. She also would benefit from arrhythmia monitoring with 30-day monitor but would like to rule out obstructive CAD prior with inpatient evaluation. - Admission to [facility] for exercise stress test, TTE and monitoring - 30-day arrhythmia monitoring if obstructive CAD cardiac workup is unrevealing - Pt is agreeable to this plan Fatigue 11/16/2017 Assessment & Plan (07/17/2024 4:30 PM CDT): Patient reports severe exhaustion. We will hydrate aggressively today in the office and see if that will help. Assessment & Plan (05/19/2024 2:56 PM DINKEY SKINNER): She is complaining of excessive fatigue since the time of her surgery. At this time a CBC and iron profile will be checked. Assessment & Plan (01/31/2023 9:39 AM CDT): Patient notes quite a bit of fatigue despite getting a restful night's sleep. At this time labs including an iron profile will be checked. Assessment & Plan (03/09/2019 5:05 PM DINKEY SKINNER): Patient him most of her labs drawn the hospital but we will do some additional testing today including a magnesium level Assessment & Plan (10/21/2018 8:40 AM CDT): Last CBC H&H was normal. Patient does have some depression and feels very fatigue. Osteoarthritis of lumbar spine 06/05/2016 Skin sensation disturbance 04/15/2016 Left bundle branch block (LBBB) 04/14/2016 Assessment & Plan (11/18/2021 9:46 AM CDT): Stable. Chronic pain 04/14/2016 Herniation of intervertebral disc of cervical re gion 04/11/2016 Overview (08/11/2016): Bulging cervical disc Leukocytosis 04/11/2016 Overview (08/11/2016): Leukocytosis, unspecified type Assessment & Plan (03/24/2024 10:50 AM DINKEY SKINNER): A CBC will be obtained today patient does have a chronically elevated white count. Assessment & Plan (08/28/2023 12:53 PM CDT): Explanation for the elevated white count is unclear. Repeat labs will be obtained today to make sure that it is not continuing to go up. Assessment & Plan (10/17/2016 1:01 PM CDT): At this time the workup is negative and the patient's white count is down to 13.1. I do believe that she is medically stable for surgery at this time. 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 Assessment & Plan (11/18/2021 9:44 AM CDT): Continue CPAP and weight loss. Assessment & Plan (06/21/2017 9:21 AM DINKEY SKINNER): encourage to fu pulmonary for sleep evaluation as scheduled encourage to use cpap as rx education risk benefits side affects of nonadherance Acquired hypothyroidism 03/15/2016 Overview (08/12/2016): Other specified hypothyroidism Assessment & Plan (05/19/2024 2:55 PM DINKEY SKINNER): Stable on replacement labs will be obtained Assessment & Plan (10/17/2023 10:53 AM CDT): On replacement. Labs will be obtained today. Assessment & Plan (08/28/2023 12:53 PM CDT): Her thyroid dose was recently increased 2.1 2 5. A TSH and T4 will be checked Assessment & Plan (04/18/2023 11:20 AM DINKEY SKINNER): Labs will be obtained with a TSH refluxing to T4. Assessment & Plan (01/31/2023 9:39 AM CDT): On levothyroxine. A TSH will be obtained today. She has been stable. Assessment & Plan (10/27/2022 12:56 PM CDT): Stable on replacement continue levothyroxine Assessment & Plan (06/29/2022 10:36 AM DINKEY SKINNER): Clinically and biochemically euthyroid. Continue levothyroxine 112 mcg daily. Assessment & Plan (02/05/2022 9:20 PM CDT): Continue levothyroxine 112 mcg daily. Assessment & Plan (11/23/2021 1:19 PM CDT): Continue levothyroxine 112 mcg daily. Assessment & Plan (11/18/2021 9:46 AM CDT): A TSH was ordered Assessment & Plan (05/23/2021 9:59 AM DINKEY SKINNER): Clinically and biochemically euthyroid. TSH 1.18. Continue levothyroxine 112 mcg daily. TSH annually. TSH was 0.3-4.2. Assessment & Plan (01/26/2021 9:24 AM CDT): Clinically and biochemically euthyroid. Continue levothyroxine 112 mcg once daily. TSH annually. Assessment & Plan (08/24/2020 10:17 PM CDT): Clinically and biochemically euthyroid. Continue levothyroxine 112 mcg daily. TSH annually Assessment & Plan (05/12/2020 8:51 AM DINKEY SKINNER): Clinically and biochemically euthyroid. Continue levothyroxine 112 mcg daily. TSH annually. Assessment & Plan (12/01/2019 1:41 PM CDT): Biochemically euthyroid. Continue levothyroxine 88 mcg daily. TSH annually. Assessment & Plan (11/19/2019 11:09 AM CDT): On replacement stable. Assessment & Plan (03/17/2019 10:55 AM DINKEY SKINNER): Biochemically euthyroid. Continue levothyroxine 112 mcg daily. TSH Q 6-12 months. Assessment & Plan (03/09/2019 5:05 PM DINKEY SKINNER): Recent TSH was normal Assessment & Plan (10/21/2018 8:39 AM CDT): Clinically euthyroid being followed by Endocrinology. Assessment & Plan (08/26/2018 4:07 PM CDT): Biochemically euthyroid. TSH is 0.6. Continue levothyroxine 112 mcg daily. TSH Q 6-12 months. Assessment & Plan (06/11/2018 10:27 AM DINKEY SKINNER): A TSH will be checked. Assessment & Plan (06/21/2017 9:22 AM DINKEY SKINNER): Stable Taking medication as prescribed. Assessment & Plan (03/15/2017 11:50 AM DINKEY SKINNER): TSH was 8.2 in October 2016. Levothyroxine was increased to 112 mcg daily. TSH today. Dose adjustment based on above. TSH Q 6-12 months if biochemically euthyroid Assessment & Plan (12/16/2016 5:26 PM CDT): TSH was 8.25 in October 2015. Will increase levothyroxine to 112 mcg daily. TSH in 2 months.. Proliferative diabetic retinopathy 03/15/2016 Overview (08/12/2016): Stable proliferative diabetic retinopathy of both eyes associated with diabetes mellitus of other type Assessment & Plan (05/19/2024 2:57 PM DINKEY SKINNER): Stable follow-up with Ophthalmology Assessment & Plan (07/30/2023 4:15 PM CDT): Stable. Follow-up with Ophthalmology. Assessment & Plan (06/22/2022 9:43 PM DINKEY SKINNER): Continue close follow-up with Ophthalmology. Patient has been stable. Assessment & Plan (11/18/2021 9:45 AM CDT): Follow-up with Ophthalmology. Stable. Assessment & Plan (06/06/2021 1:31 PM DINKEY SKINNER): Continue close ophthalmological follow-up. Stable Assessment & Plan (08/30/2020 10:11 AM CDT): Follow-up with Ophthalmology. Assessment & Plan (12/01/2019 1:42 PM CDT): Emphasized importance of tight glycemic control Assessment & Plan (11/19/2019 11:09 AM CDT): Patient is due for diabetic eye exam Assessment & Plan (10/21/2018 8:42 AM CDT): Followed by Ophthalmology eye exam up-to-date. Assessment & Plan (06/11/2018 10:27 AM DINKEY SKINNER): She was just seen by retina and has stable diabetic proliferative retinopathy. Gastroesophageal reflux disease with apnea 03/15 Overview (08/12/2016): GERD with apnea Assessment & Plan (11/18/2021 9:45 AM CDT): Controlled with pantoprazole Moderate persistent asthma 03/15/2016 Overview (08/12/2016): Moderate persistent asthma without complication Assessment & Plan (07/03/2024 12:43 PM DINKEY SKINNER): Per asthma specialist. Assessment & Plan (10/21/2018 8:42 AM CDT): Asthma is unchanged. The patient is experiencing monthly daytime asthma symptoms. She is experiencing monthly nighttime asthma symptoms. Discussed monitoring symptoms and use of quick-relief medications and contacting us early in the course of exacerbations. Degeneration of intervertebral disc of lumbar re gion 03/15/2016 Overview (08/12/2016): Degenerative disc disease, lumbar S/P cervical spinal fusion 03/15/2016 Overview (08/12/2016): Status post cervical discectomy Paresthesia of arm 11/30/2015 Assessment & Plan (06/22/2022 10:57 PM DINKEY SKINNER): At this time the patient is having significant symptoms in her upper extremities. She is going to be placed on a Medrol Dosepak. I would like to see her back in the office in 1 week in his symptoms do not improve she may indeed require an MRI of her neck. Assessment & Plan (11/18/2021 9:44 AM CDT): Patient has bilateral upper extremity numbness and tingling which is worse when she sleeps but occurs when she drives the car reads a book. She has a history of cervical disease but this sounds more carpal tunnel in nature. A nerve conduction study will be ordered. Assessment & Plan (08/30/2020 10:11 AM CDT): Worsening after stopping the nortriptyline. Patient is going to go back on it Cervical myelopathy 06/17/2015 Assessment & Plan (05/19/2024 2:57 PM DINKEY SKINNER): Status post cervical decompression. She still has some weakness in her upper extremities Assessment & Plan (07/30/2023 4:14 PM CDT): Patient has some residual numbness and tingling in her arms but overall things are much improved. Assessment & Plan (08/04/2022 10:56 AM CDT): Laboratory studies will be obtained today. Patient's electrocardiogram shows a left bundle branch block which is chronic. There are no changes from her prior tracings. At this time she is medically and cardiovascularly cleared for surgery Assessment & Plan (06/22/2022 9:40 PM DINKEY SKINNER): Patient has seen Dr. Bolton in the past and had surgery on her neck. At this time an MRI will be obtained and a referral back to Neurosurgery made. Assessment & Plan (11/18/2021 9:44 AM CDT): Patient does complain of worsening paresthesias of the upper extremity. This may be part of her cervical myelopathy verses a carpal tunnel syndrome. Testing will be ordered. Spinal stenosis of cervical region 06/17/2015 Osteoarthritis of cervical spine 06/17/2015 Migraine headache 05/11/2015 Vestibular migraine 03/11/2015 Benign paroxysmal positional vertigo 02/26/2015 Type 2 diabetes mellitus wit h hyperglycemia, with long-term current use of insulin 01/08/2015 Assessment & Plan (10/21/2024 4:30 PM CDT): A1c at goal on current therapy. Check malb today. Continue routine eye exams. Assessment & Plan (07/03/2024 12:43 PM DINKEY SKINNER): A1c above goal. Stop compounded Mounjaro and switch to Ozempic. Increase the dose gradually every 4 weeks. I tightened her ICR's to 4.5 from 5 and increased all basal rates to 1.5 Units/hr. She met with our CDE today to increase the limits on her insulin delivery on the pump. Assessment & Plan (05/19/2024 2:56 PM DINKEY SKINNER): Blood sugars have been under good control labs including an A1c will be checked Assessment & Plan (03/24/2024 11:48 AM DINKEY SKINNER): Patient was recently evaluated by her hog grader and reports that her A1c was 7.2. At this time she is medically stable to proceed with a partial knee replacement. Continue Mounjaro 7.5 mg weekly Assessment & Plan (03/11/2024 12:36 PM DINKEY SKINNER): A1c near goal. I encouraged accurate and timely bolusing. Set temp basal of 80% prior to knee surgery. Stop Mounjaro for at least 1 week before surgery. Continue routine eye exams. Assessment & Plan (11/23/2023 3:52 PM CDT): A1 above goal. I tightened her ICR from 10AM to 10PM from 1:5 to 1:4.5. I also refilled Mounjaro 7.5 mg weekly; she cannot take Trulicity or Ozempic so this is her best GLP1 agonist option. Eye exam current as of October 2023. Assessment & Plan (07/30/2023 12:00 PM CDT): A1c continues to read higher than the GMI on her excellent DEXCOM report. No changes to pump settings, but will repeat venous A1c. Continue annual ophthalmology exams. Assessment & Plan (04/18/2023 11:19 AM DINKEY SKINNER): Patient is going to go back on Ozempic and see if we can get her to tolerate it. A prescription for Zofran was given previously to help with nausea. She will use that as needed. Assessment & Plan (03/28/2023 1:09 PM DINKEY SKINNER): Steroids have caused the elevation in her A1c. In last two weeks, her glucoses have been at goal with a GMI of 6.8%. Keep current pump settings. After next knee injection, I recommend that she set a 120% temporary basal rate for a few days after the steroid injection to offset the anticipated rise in her glucoses. Assessment & Plan (01/31/2023 9:38 AM CDT): Her hemoglobin A1c has come down to 7.8. She is doing better. We will try to get her Mounjaro approved through her insurance company as she did not tolerate either Trulicity or Ozempic. Assessment & Plan (12/13/2022 10:33 AM CDT): A1c improving but still above goal. I recommended that she turn off sleep mode overnight as this is running her glucoses higher than they should be. No other changes to pump settings at this time. She will communicate with us in 1-2 weeks for further recommendations. She will continue the Mounjaro as directed by her PCP. Assessment & Plan (09/21/2022 11:09 AM CDT): Glucoses appear to be in good range on her pump/CGM report. No pump adjustments needed today. She may start the Mounjaro with her PCP. Given her low C peptide level, she has an absolute insulin deficiency and so although Mounjaro will be helpful for weight loss, it may not be helpful for glycemic control. Assessment & Plan (08/07/2022 8:02 PM CDT): A1c much improved over a short time period and TIR on her DEXCOM is 75%, which is at goal. No further pump adjustments are needed. She is ok to proceed with her upcoming spine surgery from my perspective. As for insulin management during the surgery itself, I will check a C peptide which will determine her perioperative management (she is listed as a type 2, but has developed ketosis in the past without basal insulin). Either way, I think she will need to come off of her pump and DEXCOM due to the length of the surgery. Will see her back in about 4 weeks, at which point she will likely be able to start Mounjaro. Once she does so, I anticipate that we will be able to lower her insulin doses. Assessment & Plan (07/17/2022 10:19 AM CDT): A1c above goal. I adjusted her carb ratios from 6AM to 10PM from 1:3.0 to 1:2.7 and also tightened her ISF from 1:35 to 1:30 during this time interval. I agree with the addition of Mounjaro to help with weight loss, and this is being pursued by her PCP's office. RTC in 4 weeks for an appointment with me and the diabetes nurse educator. Assessment & Plan (06/29/2022 10:34 AM DINKEY SKINNER): This is a 57-year-old female seen for chronic and uncontrolled insulin-dependent type 2 diabetes mellitus. Recent A1c is 9%. CGM pump data review showed steroid induced hyperglycemia. Last dose completed on 06/20/2022. Blood glucose levels have slightly improved since steroid discontinuation. Plan Basal rate Midnight-1.20 units/hours 3:00 a.m.-1.75 unit/hour 6:00 a.m. -2.85 units/hour 10:00 p.m. 2.25 unit/hour Total daily basal equals 59.0 units Carb ratio Midnight -4 g 6:00 a.m.-3 g Sensitivity Midnight-35 6:00 a.m.-30 Blood glucose target-110 Active insulin time-5 hours. Control IQ- on Continue Mounjaro 2.5 mg weekly x 4 weeks. Potential side effects of Mounjaro including but not limited to nausea, vomiting and acute pancreatitis discussed. Advised to Stop Mounjaro and call if having persistent nausea or vomiting. Check blood glucose before meals and bedtime. Call with blood glucose less than 80 or above 200 consistently. Will review data in 1 week and make adjustments as needed. Follow consistent carb diet. Participate in exercise regimen as tolerated. Advice to set activity setting when exercising and pump. Recommend to turn on activity mode on the day of the surgery while NPO. Follow up in 3 months. Assessment & Plan (06/22/2022 9:42 PM DINKEY SKINNER): Patient is scheduling a follow-up with Endocrinology. She will continue the use of her insulin pump and we will add a GLP1 her treatment regimen. A prescription for mounjaro has been sent to the pharmacy. Patient will continue close monitoring her sugar. Her A1c is 9. Her sugars are out of control. Assessment & Plan (04/17/2022 11:09 AM DINKEY SKINNER): Her sugars have not been well controlled with the addition of the steroids. Patient knows that she needs to stick to her diet and keep her blood sugars under control. Last A1c was 8.9. Assessment & Plan (03/29/2022 12:36 PM DINKEY SKINNER): Continue insulin pump. Patient believes that her A1c will be significantly better. She is using a control IQ pump Assessment & Plan (02/05/2022 9:20 PM CDT): This is a 56-year-old female seen for chronic and uncontrolled type 2 diabetes mellitus. Pump and sensor data reviewed. Patient is experiencing hyperglycemia. Plan Will increase basal rate. Insulin pump settings: Total daily basal 59.1 units (changed from 58.3 units) Basal rates: 12 AM: 1.25 units per hour. 03 Am: 1.75 units/hr 0 6 AM: 2.85 units per hour. (Changed from 2.80 units/hr) 10:00 PM 2.25 units /hr Insulin carb ratio : 12:00 a.m.: 1 unit per 4 g 6:00 a.m.: 1 unit per 3 g. 10:00 a.m.: 1 unit per 3 g Insulin sensitivity factor: 12:00 a.m.: 35 6:00 a.m.: 30 Glucose target: 12 am-06 am;100-120 06 am-12 am:100-120 Active insulin time: 3 hours. Start Trulicity 0.75 mg weekly x 4 weeks. Potential side effects of Trulicity including but not limited to nausea, vomiting and acute pancreatitis discussed. Advised to Stop . Trulicity and call if having persistent nausea or vomiting. Check blood glucose before meals and bedtime. Call with blood glucose less than 80 or above 200 consistently. Follow consistent carb diet. Participate in exercise regimen as tolerated. Advice to set activity setting when exercising and pump. Assessment & Plan (11/23/2021 1:19 PM CDT): This is a 56-year-old female seen for chronic and uncontrolled insulin depended type 2 diabetes mellitus. Today POC hemoglobin A1c is 8.7%. Pump and sensor data reviewed. Complains of occasional lows at night. Patient is experiencing postprandial hyperglycemia. Will decrease nighttime basal rate. Insulin pump settings: Total daily basal 58.3 units (changed from 58.45 units) Basal rates: 12 AM: 1.25 units per hour. (changed from 1.3 units/hour) 03 Am: 1.75 units/hr 0 6 AM: 2.8 units per hour. 10:00 PM 2.25 units /hr Insulin carb ratio : 12:00 a.m.: 1 unit per 4 g 6:00 a.m.: 1 unit per 3 g. 10:00 a.m.: 1 unit per 3 g Insulin sensitivity factor: 12:00 a.m.: 35 6:00 a.m.: 30 Glucose target: 12 am-06 am;100-120 06 am-12 am:100-120 Active insulin time: 3 hours. Start Mounjaro 2.5 mg once weekly X 4 weeks. Will titrate dose based on patient's tolerance blood glucose levels. Side effects discussed but not limited to nausea, vomiting, abdominal pain, diarrhea. Patient will notify us if experiencing any adverse effects. Check blood glucose before meals and bedtime. Call with blood glucose less than 80 or above 200 consistently. Follow consistent carb diet. Patient will like to switch to tandem pump. Will start paperwork. She is also interested in switching to Dexcom sensor. Rx sent to pharmacy. Educated on ways to avoid and treat hypoglycemia. Participate in exercise regimen as tolerated. Follow-up in 4 weeks. Assessment & Plan (11/18/2021 9:45 AM CDT): Patient is on an insulin pump. She will follow-up with Endocrinology. Labs including an albumin creatinine ratio EGFR an A1c will be obtained today. Assessment & Plan (05/23/2021 10:01 AM DINKEY SKINNER): Chronic, uncontrolled. Hemoglobin A1c was 8 8% in January 2021 . Variable blood sugars with recent COVID infection. Plan. 1. Continue current insulin pump settings. 2. Advised to bolus every 4 hours. 3. Keep well hydrated. 4. She will start Trulicity 0.75 mg weekly once she recovers from COVID-19 infection. Plan to titrate to 1.5 mg weekly in 4 weeks if tolerating. Avoiding Ozempic due to retinopathy. 5. Insulin pump is out of warranty. Options discussed. Interested in T slim X 2 insulin pump. Will send application. 6. A1c goal less than 7.0%. 7. Follow-up in 3 months Potential side effects of Trulicity including but not limited to nausea, vomiting and acute pancreatitis discussed. Advised to call if having persistent nausea or vomiting. Insulin pump settings: Total daily basal 59.0 units Basal rates: 12 AM: 1.45 units per hour. 03 Am: 1.75 units/hr 0 6 AM: 2.8 units per hour. 10:00 PM 2.30 units /hr Insulin carb ratio : 12:00 a.m.: 1 unit per 4 g 6:00 a.m.: 1 unit per 3 g. 10:00 a.m.: 1 unit per 3 g Insulin sensitivity factor: 12:00 a.m.: 35 6:00 a.m.: 30 Glucose target: 12 am-06 am;100-125. 06 am-12 am:100-120 Active insulin time: 3 hours. Assessment & Plan (01/27/2021 6:57 PM CDT): This is 55 year old female seen for uncontrolled type 2 diabetes follow up visit. Today POC A1C is 8.8%. Workup for autoimmune diabetes is negative. Concerns with difficulty loosing weight. Patient is a good candidate for GLP 1. Denies family or medical history of pancreatitis, pancreatic cancer, MEN and MTC. Will continue current pump settings Insulin pump settings: Auto mode: On. Total daily basal 59.0 units Basal rates: 12 AM: 1.45 units per hour. 03 Am: 1.75 units/hr 0 6 AM: 2.8 units per hour. 10:00 PM 2.30 units /hr Insulin carb ratio is: 12:00 a.m.: 1 unit per 4 g 6:00 a.m.: 1 unit per 3 g. 10:00 a.m.: 1 unit per 3 g Insulin sensitivity factor: 12:00 a.m.: 35 6:00 a.m.: 30 Glucose target: 12 am-06 am;100-125. 06 am-12 am:100-120 Active insulin time: 3 hours. Start Metformin XR 500 mg daily with Breakfast. Start Trulicity 0.75 mg once weekly. After 4 weeks tolerating well with no adverse effect will increase to 1.5 mg once weekly Potential side effects of Trulicity including but not limited to nausea, vomiting and acute pancreatitis discussed. Advised to Stop . Trulicity and call if having persistent nausea or vomiting. Check blood glucose before meals and at bedtime. Call with blood glucose less than 70 or above 200 consistently. Follow consistent carb diet. Follow up in 4 weeks. Assessment & Plan (08/30/2020 10:10 AM CDT): Status post stent placement. Patient is not having any claudication symptoms at this time. Continue current therapy. Hyperlipidemia 01/01/2015 Assessment & Plan (10/21/2024 2:50 PM CDT): At goal on current therapy. Assessment & Plan (03/11/2024 12:35 PM DINKEY SKINNER): At goal on current therapy. Assessment & Plan (11/23/2023 3:51 PM CDT): At goal on current therapy. Assessment & Plan (07/30/2023 9:17 AM CDT): Continue rosuvastatin. Check lipids. Assessment & Plan (03/28/2023 10:15 AM DINKEY SKINNER): At goal on current therapy. Assessment & Plan (12/13/2022 10:32 AM CDT): At goal on current therapy. Assessment & Plan (07/17/2022 10:17 AM CDT): At goal on current therapy. Assessment & Plan (06/29/2022 10:40 AM DINKEY SKINNER): Continue rosuvastatin. Follow low-fat diet Assessment & Plan (03/29/2022 12:36 PM DINKEY SKINNER): A fasting lipid profile will be obtained today. Assessment & Plan (02/05/2022 9:22 PM CDT): Continue rosuvastatin. Follow low-fat low-cholesterol diet. Assessment & Plan (11/23/2021 1:19 PM CDT): Continue rosuvastatin 40 mg daily. Assessment & Plan (11/18/2021 9:46 AM CDT): The patient will continue medical therapy. Refills on anticholesterol medicines will be provided for the next year as needed. A heart healthy diet was provided. The patient was instructed report any symptoms such as muscle aches or pains or joint problems they feel could be associated with her medications. Assessment & Plan (05/23/2021 9:59 AM DINKEY SKINNER): Lab Results Component Value Date LDLCALC 28 08/30/2020 Stable. Continue rosuvastatin. Low cholesterol/low-fat diet Assessment & Plan (01/26/2021 9:24 AM CDT): At goal on rosuvastatin. Assessment & Plan (08/24/2020 10:35 PM CDT): Lab Results Component Value Date LDLCALC 64 06/21/2017 At goal on rosuvastatin. Low cholesterol/low-fat diet Assessment & Plan (06/01/2020 7:36 AM DINKEY SKINNER): Last LDL 77 on atorvastatin 40 mg daily. Triglycerides 239. LDL is likely underestimated since triglycerides are high. 40% lesion in the LAD by coronary catheterization. Increase atorvastatin to high-intensity dose 80 mg daily for risk reduction. Assessment & Plan (05/12/2020 8:52 AM DINKEY SKINNER): LDL at goal. Continue atorvastatin 40 mg daily. Assessment & Plan (12/01/2019 1:44 PM CDT): At goal. Continue atorvastatin. She is scheduled for labs next week Assessment & Plan (03/17/2019 10:56 AM DINKEY SKINNER): Well controlled. Continue atorvastatin. Resolved Problems Problem Noted Date Diagnosed Date Resolved Date Type 2 diabetes mellitus wit h peripheral vascular disease 08/04/2022 08/06/2023 Assessment & Plan (07/30/2023 4:16 PM CDT): Patient is due for a follow-up PETER this Sunday. She does have a carotid bruit and because of that we are going to order a Doppler as well. Assessment & Plan (10/27/2022 12:56 PM CDT): She is due for lab work and would like to increase them on Nicola 2 5 mg. A new prescription has been sent to the pharmacy. Assessment & Plan (08/04/2022 10:57 AM CDT): Stable. Patient has an appointment to see her hog grader next week. 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 Sebaceous cyst 06/01/2021 11/18/2021 Overview (06/01/2021): Added automatically from request for surgery [id number] COVID-19 05/26/2021 11/18/2021 Memory impairment 05/03/2021 08/06/2023 Anxiety and depression 05/03/202111/18 Vertigo 03/14/2021 11/18/2021 Assessment & Plan (03/14/2021 12:04 PM DINKEY SKINNER): Patient has a follow-up with ENT in April. In the meantime she is being referred for vestibular therapy. Pain of left heel 12/15/2020 11/18/2021 Assessment & Plan (12/15/2020 3:19 PM CDT): Transient, pinpoint tenderness. No tenderness over plantar fascia. No skin breakdown or evidence of infection or foreign body. Suspect a tendinitis. Recommending icing the area. Diabetic ulcer of left heel associated with type 1 diabetes mellitus, limited to breakdown of skin ([facility]) 06/01/2020 11/18/2021 Assessment & Plan (06/01/2020 7:28 AM DINKEY SKINNER): Scabbed ulcer left lateral heel. She will observe the ulcer closely. If ulcer does not heal with improved blood flow, she will follow up with Podiatry. Flushing 03/09/2019 11/18/2021 Assessment & Plan (03/17/2019 11:02 AM DINKEY SKINNER): History of appnediceal arcinoid status post surgery more than 20 years ago. Reports intermittent flushing. No shortness of breath/wheezing or diarrhea. 24 hours urine HIAA ordered by Dr. Schultz. Will follow-up. Assessment & Plan (03/09/2019 5:06 PM DINKEY SKINNER): A 24 hour urine for 5 HIAA has been ordered Weak 02/14/2019 03/03/2019 Assessment & Plan (02/14/2019 9:47 AM CDT): Patient is continuing to have weak spells where it feels like she will pass out. This can be associated with the palpitations buttock can occur her on its own. Since she had her upper respiratory tract infection she has been extremely lethargic. She has been and able to do her normal activities. Diplopia 06/11/2018 11/18/2021 Assessment & Plan (06/11/2018 10:25 AM DINKEY SKINNER): Patient had a transient episode of blurred vision and diplopia lasting over 12 hr. While her symptoms have improved workup is pending. Carotid Dopplers and MRI of the brain have been ordered. BMI 38.0-38.9,adult 03/15/2017 08/27/19 19 Assessment & Plan (06/11/2018 9:52 AM DINKEY SKINNER): BMI Follow-up includes: nutrition counseling, exercise counseling and education provided. Assessment & Plan (06/21/2017 9:23 AM DINKEY SKINNER): Body mass index is 37.93 kg/m . BMI Follow-up includes: nutrition counseling, exercise counseling and education provided. Had gastric sleeve. Assessment & Plan (03/15/2017 11:51 AM DINKEY SKINNER): Lost close to 50 lb status post sleeve gastrectomy. Continue high-protein, low carbs small frequent meals Increase physical activity as tolerated. Morbid obesity due to excess calories 12/16/2016 06/11/2018 Assessment & Plan (06/21/2017 9:21 AM DINKEY SKINNER): Obesity is unchanged. Discussed the patient's BMI. The BMI is above average; BMI management plan is completed. General weight loss/lifestyle modification strategies discussed (elicit support from others; identify saboteurs; non-food rewards, etc). Assessment & Plan (12/16/2016 4:40 PM CDT): Status post gastric sleeve. Continue high-proteins/low carbs small frequent meals. Mixed hyperlipidemia 12/16/2016 019 Assessment & Plan (10/21/2018 8:41 AM CDT): Lipid abnormalities are unchanged. The patient was referred to the biosolids management technician. Lipids will be reassessed in 6 months. Assessment & Plan (08/26/2018 4:06 PM CDT): Well controlled on atorvastatin. Assessment & Plan (06/21/2017 9:22 AM DINKEY SKINNER): Lipid abnormalities are unchanged. Nutritional counseling was provided. Lipids will be reassessed in 6 months. Labs pending. Assessment & Plan (03/15/2017 11:49 AM DINKEY SKINNER): Off atorvastatin for the past few done due to difficulty swallowing. Advised to restart atorvastatin 40 mg daily instead of hs. Assessment & Plan (12/16/2016 4:43 PM CDT): Well controlled on atorvastatin. Near syncope 12/07/2016 03/03/2019 Assessment & Plan (12/07/2016 1:38 PM CDT): A 30 day event recorder is being placed and the patient will follow up in the office in a couple of weeks. We have resumed the Cozaar at 25 mg a day. Dehydration 12/04/2016 03/03/2019 Assessment & Plan (12/04/2016 7:40 AM CDT): Reviewed hospital admission discharge treatment plan diagnostic laboratory referrals Reconciled medication allergies Written plan was given to the patient for rtov Stay hydrated Activity as tolerated Follow-up with the surgeon tomorrow Records will be released to this office with a RO I signed by the patient Gastric bypass status for obesity 12/04/2016 03/03/2019 Assessment & Plan (12/07/2016 1:39 PM CDT): The patient is checked her blood sugars on multiple occasions when she is feeling poorly and her blood sugars always normal. Assessment & Plan (12/04/2016 7:40 AM CDT): Reviewed hospital admission discharge treatment plan diagnostic laboratory referrals Reconciled medication allergies Written plan was given to the patient for rtov BMI 40.0-44.9, adult 10/17/2016 017 Assessment & Plan (12/16/2016 4:39 PM CDT): BMI Follow-up includes: nutrition counseling, exercise counseling and education provided. Assessment & Plan (11/06/2016 4:56 AM CDT): She is scheduled for sleeve gastrectomy. Assessment & Plan (10/17/2016 12:37 PM CDT): At this time the patient is scheduled for bariatric surgery in a couple of weeks. Her white blood cell count is back down to normal. There is no evidence for infection. Sciatica 05/13/2016 06/01/2020 Disease of spinal cord (CMS/HCC) 04/27/2016 06/06/2021 Overview (08/12/2016): Lumbar myelopathy Assessment & Plan (11/19/2019 11:10 AM CDT): Symptoms have improved patient will continue current therapy Assessment & Plan (10/21/2018 8:40 AM CDT): Stable at this time. Moderate episode of recurren t major depressive disorder 04/27/2016 08/06/2023 Overview (08/12/2016): Moderate episode of recurrent major depressive disorder Assessment & Plan (07/30/2023 4:14 PM CDT): Stress levels are very high. She does however want to try to decrease her Wellbutrin to 150 mg daily. She is tired of taking a bunch of medications. She denies any suicidal ideation. Assessment & Plan (08/04/2022 10:57 AM CDT): Stable at the present time. Given her physical debility that is weighing in on her depression Assessment & Plan (06/22/2022 9:43 PM DINKEY SKINNER): Her poor diabetes control and obesity are feeling her depression. She denies any suicidal ideation. Assessment & Plan (11/18/2021 9:45 AM CDT): Her depression is stable on her current regimen. Work is very stressful. It does creating diet he. Assessment & Plan (06/06/2021 1:31 PM DINKEY SKINNER): Patient is doing reasonably well on her current therapy. No changes will be recommended. Assessment & Plan (12/15/2020 3:21 PM CDT): Having anxiety with Wellbutrin but it is helping with her depression. Discussed about adding adjuvant SSRI to help with additional anxiety. - add Lexapro 5 mg daily Assessment & Plan (08/30/2020 10:09 AM CDT): We will add back the nortriptyline 1st to 25 mg titrating to 50 if need be. Assessment & Plan (06/27/2020 4:37 PM DINKEY SKINNER): At this time her depression is not had a quickly controlled. We are going to increase the bupropion to 300 mg in the morning. Like to see the patient back in 6 weeks. Assessment & Plan (05/16/2020 7:58 PM DINKEY SKINNER): Patient is going to be placed on bupropion 150 mg daily. We will see her back in the office in 1 month. If she develops any worsening depression or suicidal ideation she was instructed contact the office immediately. Assessment & Plan (11/19/2019 11:08 AM CDT): Patient recognizes with current stress and anxiety she needs to be back on bupropion. She is going to resume 75 mg b.i.d. for the 1st couple of weeks and then 150 mg daily. We may have to titrate to 300. Assessment & Plan (10/21/2018 8:42 AM CDT): Patient attempted to go back on Prozac begin having palpitations and tachycardia so she stopped the medication. Depression symptoms still exist will start Wellbutrin 75 mg twice a day and increase as needed. Assessment & Plan (06/11/2018 10:28 AM DINKEY SKINNER): Patient reports that her depression is under good control. She is going to continue current therapy. Assessment & Plan (06/21/2017 9:21 AM DINKEY SKINNER): Psychological condition is unchanged. Continue current treatment regimen. Psychological condition will be reassessed at the next regular appointment. Lumbar radiculopathy 04/15/2016 022 Assessment & Plan (03/14/2021 12:03 PM DINKEY SKINNER): Patient has no weakness in the muscles. Physical therapy has been recommended. A referral has been placed. Patient would like to go to [facility]. Pain of lower extremity 04/14/201602/05 Lumbago 04/14/2016 03/03/2019 Hyperglycemia 04/11/2016 08/26/2018 Overview (08/11/2016): Hyperglycemia Cervical discitis 04/11/2016 11/18/2021 Overview (08/11/2016): Discitis of cervical region Hypertension due to endocrine disorder 04/11/2016 05/16/2020 Overview (08/11/2016): Hypertension due to endocrine disorder Assessment & Plan (03/17/2019 11:02 AM DINKEY SKINNER): Stable on current regimen Mixed anxiety depressive disorder 03/15/2016 11/18/2021 Overview (08/09/2016): Depression with anxiety Assessment & Plan (10/21/2018 8:41 AM CDT): Psychological condition is worsening. Regular aerobic exercise. Medication changes per orders. Psychological condition will be reassessed in 3 months. Restart patient on Wellbutrin 75 mg b.i.d. Patient to call in 1 month to discuss if medication is working. Assessment & Plan (06/21/2017 9:22 AM DINKEY SKINNER): Increase activity. Stick to prescribed nutrition plan, take prescriptions as instructed, call for any thought of suicide or homocidal ideation or anger outburst. 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 History of gestational diabe gideon mellitus (GDM) 03/15/2016 03/03/2019 Overview (08/11/2016): History of gestational diabetes Status post lumbar spine operation 03/15/2016 03/03/2019 Overview (08/12/2016): History of lumbar discectomy History of appendectomy 03/15/201602/05 Overview (08/12/2016): History of appendectomy History of surgical procedure 03/15/2016 03/03/2019 Overview (08/12/2016): History of dilatation and curettage History of tubal ligation 03/15/2016 Overview (08/12/2016): Tubal ligation status History of cholecystectomy 03/15/2016 1 Overview (08/12/2016): History of cholecystectomy Primary osteoarthritis of both knees 03/15/2016 11/18/2021 Overview (08/12/2016): Primary osteoarthritis of both knees History of pneumonia 03/15/2016 019 Overview (08/12/2016): History of pneumonia Type 1 diabetes mellitus with hyperglycemia 03/15/2016 01/26/2021 Overview (08/12/2016): Insulin dependent diabetes mellitus Assessment & Plan (08/24/2020 10:33 PM CDT): 55 years old female seen in follow-up for JERMAN. Hemoglobin A1c is 8.5% Reviewed insulin pump/CGM download: Post lunch and dinner hyperglycemia. Discussed trial of metformin. Potential side effects including nausea vomiting, diarrhea and lactic acidosis discussed.. -metformin ER 500 mg daily with dinner. Titrate to 500 mg b.i.d. in 1 week if tolerating. -continue current pump settings. -will check GAD65, Islet cell and ZNT8 abs. Trial of Trulicity next visit if the later 2 antibodies are negative. -consistent carb diet. -RTC in 3 months Insulin pump settings: Auto mode: On. Total daily basal 59.0 units Basal rates: 12 AM: 1.45 units per hour. 03 Am: 1.75 units/hr 0 6 AM: 2.8 units per hour. 10:00 PM 2.30 units /hr Insulin carb ratio is: 12:00 a.m.: 1 unit per 4 g 6:00 a.m.: 1 unit per 3 g. 10:00 a.m.: 1 unit per 3 g Insulin sensitivity factor: 12:00 a.m.: 35 6:00 a.m.: 30 Glucose target: 12 am-06 am;100-125. 06 am-12 am:100-120 Active insulin time: 3 hours. Assessment & Plan (06/01/2020 7:27 AM DINKEY SKINNER): Followed by endocrinology. Managed with insulin pump and CGM. Assessment & Plan (05/27/2020 9:25 AM DINKEY SKINNER): - Endo c/s for insulin pump management - Q4h blood glucose checks Assessment & Plan (05/12/2020 8:55 AM DINKEY SKINNER): Uncontrolled, hemoglobin A1c is 8.5%. Reviewed insulin pump/CGM. Daytime hyperglycemia with occasional nocturnal lows. Recommendations. 1. Decrease nighttime basal rate. 2. Decrease daytime basal rate. 3. No change in ICR. 4. Send insulin pump data in 1-2 weeks. 5. Interested in transitioning to T slim X 2 with dex come G6. Will sent paperwork. 6. RTC in 3 months. Insulin pump settings: TDB 59 units Auto mode: On. Total daily basal 58.5 units Basal rates: 12 AM: 1.45 units per hour. 03 Am: 1.75 units/hr 0 6AM: 2.8 units per hour. 10:00 Pm:2.30 units/hr Insulin carb ratio is: 12:00 a.m.: 1 unit per 4 g 6:00 a.m.: 1 unit per 4 g. 10:00 a.m.: 1 unit per 3 g Insulin sensitivity factor: 12:00 a.m.: 35 6:00 a.m.: 30 Glucose target: 12 am-06 am;100-1 25. 06 am-12 am:100-120 Active insulin time: 3 hours. Assessment & Plan (12/01/2019 1:44 PM CDT): 54 years old female seen in follow-up for uncontrolled type 1 diabetes mellitus. Hemoglobin A1c has increased from 8.2% to 8.8%. Insulin pump/CGM download reviewed. -daytime hyperglycemia Plan. 1. Will increase daytime basal rate. 2. Advised to use the bolus visit consistently to prevent postprandial hyperglycemia. 3. Limit carbs to 30-40 g per meal and 15 g per snacks, 2 snacks per day. 4. Send insulin pump data in 3-4 weeks. 5. Follow-up in 3 months Insulin pump settings: Auto mode: On. Total daily basal 58.5 units Basal rates: 12 AM: 1.60 units per hour. 03 Am: 1.75 units/hr 0 6 AM: 2.7 units per hour. Insulin carb ratios: 12:00 a.m.: 1 unit per 4 g 6:00 a.m.: 1 unit per 4 g. 10:00 a.m.: 1 unit per 3 g Insulin sensitivity factor: 12:00 a.m.: 35 6:00 a.m.: 30 Glucose target: 12 am-06 am;100-1 25. 06 am-12 am:100-120 Active insulin time: 3 hours. Assessment & Plan (11/19/2019 11:09 AM CDT): Continue insulin therapy. Labs including an A1c will be obtained today. Assessment & Plan (03/17/2019 11:00 AM DINKEY SKINNER): 53 years old seen in follow-up for uncontrolled type 1 diabetes mellitus. Hemoglobin A1c is 8.2%. Insulin pump/CGM download reviewed and is scanned into patient's chart.: -fasting hyperglycemia -post breakfast and lunch hyperglycemia Plan. 1. Increase revenue stamp clerk basal rate. 2. Increase insulin carb ratios at breakfast and lunch 3. Change daytime BGT to 100-120 mg/dL. 4. Send C GM data in 2 weeks. 5. Consistent carb diet. 6.NIGHT AUDITOR follow-up in 3 months Insulin pump settings: Auto mode: On. Total daily basal 55.95 units (increased from 55.45 units) Basal rates: 12 AM: 1.60 units per hour. 03 Am: 1.75 units/hr (increased from 1.65 units/hour) 0 8 AM: 2.65 units per hour. Insulin carb ratio : 12:00 a.m.: 1 unit per 4 g 6:00 a.m.: 1 unit per 3 g. (Increased from 1 unit per 4 g) 10:00 a.m.: 1 unit per 3 g Insulin sensitivity factor: 12:00 a.m.: 35 6:00 a.m.: 30 Glucose target: 12 am-6 am 100-1 25. 6 am -12 am : 100-120 Active insulin time: 3 hours. Assessment & Plan (03/09/2019 5:05 PM DINKEY SKINNER): A1c suggests poor control. At this time we have discussed the importance of getting back on her diet and exercise program Assessment & Plan (02/14/2019 9:48 AM CDT): Patient's most recent A1c was elevated at 8.2. She is on an insulin pump. I have encouraged her to continue to stick to her diet and work on losing weight. Assessment & Plan (10/21/2018 8:43 AM CDT): Followed by Endocrinology closely. Assessment & Plan (08/26/2018 4:10 PM CDT): 53 years old seen in follow-up for type 1 diabetes mellitus. She is on Medtronic 670 G insulin pump with CGM. Hemoglobin A1c 7.9%. Forgets to take prandial insulin consistently. Insulin pump/CGM download reviewed and is scanned into patient's chart.: -71% in target range -2% lows. -post breakfast hypoglycemic episodes. -daytime hyperglycemia Plan. 1. Will decrease insulin carb ratio at breakfast to 1 unit per 4 g. 2. Increase ISF to 30. 3. Decrease basal rates to Match auto basal. Insulin pump settings Total daily dose 53.8 units Auto mode: On Basal rates 12:00 a.m. 1.5 units/hour 3:00 a.m. 1.55 units/hour 8:00 a.m. 2.6 units/hour Insulin carb ratios 12:00 a.m. 1 unit per 4 g 6:00 a.m. 1 unit for 4 g 10:00 a.m. 1 unit for 3 g Insulin sensitive factor: 12:00 a.m.: 35 6:00 a.m. 30 Glucose target 100-125 Active insulin time 3 hrs Regular aerobic exercise. Discussed ways to avoid symptomatic hypoglycemia. Discussed sick day management. Diabetes will be reassessed in 3 months. Assessment & Plan (06/11/2018 10:26 AM DINKEY SKINNER): Patient reports that since using the free style leny blood sugars have been under better control. At the present time she has an upper respiratory tract infection and is producing of moderate amount of green sputum. Her sugars have been up in the 300s today. Assessment & Plan (06/21/2017 9:20 AM DINKEY SKINNER): Is followed by endocrinology. Labs pending Foot and eye exams are up to date. Assessment & Plan (03/15/2017 11:49 AM DINKEY SKINNER): 51 years old female seen in follow-up of type 1 diabetes mellitus. She is on Medtronic paradigm Revel insulin pump. She is status post gastric sleeve in October 2016. Hemoglobin A1c was 8% in October 2015. Insulin pump download reviewed -occasional fasting hypoglycemic episodes. -daytime hyperglycemia. Will Decrease night time basal rates New pump settings: Basal rates: 12 AM: 1.60 units per hour. (Decreased from 1.9 units/hour) 0 3 AM: 1.85 units per hour. 8:00 a.m: 2.6 units/hour. (Increased from 2.4 units/hour) this 10:00 p.m. 1.60units/hour. (decreased from 1.9 units/hour) Insulin carb ratio is: 1 unit per 3 g. Insulin sensitivity factor: 40 (decreased from 20). Glucose target: 100-1 25. Active insulin time: 4 hours. Low carbs, high-protein ,small frequent meals. Training for upgrade to 670G insulin pump today, will recieve CGM in April. Will activate automode once she have CGM. Follow-up in 2 months. Assessment & Plan (12/16/2016 5:25 PM CDT): 51 years old female seen in follow-up for type 1 diabetes mellitus. She is on Medtronic paradigm Revel insulin pump. She is status post gastric sleeve in October 2016. Recent hemoglobin A1c was 8%. Insulin pump download reviewed -occasional fasting hypoglycemic episodes. -daytime hyperglycemia. Reports episodes of hypoglycemia awareness. Will adjust basal rates. Insulin requirement will decrease significantly with weight loss. She is a good candidate for CGM due to episodes of hypoglycemia awareness. Will initiate process for CGM. New pump settings: Basal rates: 12 AM: 1.95 units per hour. 0 3 AM: 1.90 units per hour. 8:00 a.m.: 2.5 units/hour. 10:00 p.m. 1.95 units/hour. Insulin carb ratio is: 1 unit per 3 g. Insulin sensitivity factor: 20. Glucose target: 100-1 25. Active insulin time: 4 hours. Follow-up in 3 months. Assessment & Plan (11/06/2016 5:06 AM CDT): 51 years old female seen in follow-up for type 1 diabetes mellitus. Hemoglobin A1c was 8.1% in August 2016. She is scheduled for sleeve gastrectomy tomorrow. She is on Medtronic Mini Med insulin pump. Temporary basal rates before surgery as follows: Use a temporary basal rate of 3.61 units/hour (10% reduction) for 6 hours starting at 12:00 a.m. tonight. Use a temporary basal rate of 3.315 units/hour (15% reduction) for 10 hours starting at 6:00 a.m. tomorrow Check blood sugars every 2 hours before surgery. If below 100 after surgery, use a temporary basal rate of 3.12 units/hour (20% reduction) for 24 hours. Insulin pump settings: 12 AM: 3.9 units per hour. 0 3 AM: 3.9 units per hour. 0 9 PM: 3.9 units per hour. Insulin carb ratio is: 1 unit per 3 g. Insulin sensitivity factor: 20. Glucose target: 100-1 25. Active insulin time: 4 hours. Follow-up in 4 weeks. History of total hysterectom y with bilateral salpingo-oophorectomy (BSO) 03/15/2016 03/03/2019 Overview (08/12/2016): Status post FREDDIE-BSO History of surgical procedur e on eye proper using laser 03/15/2016 03/03/2019 Overview (08/12/2016): History of surgical procedure on eye proper using laser History of insertion of insulin pump 03/15/2016 03/03/2019 Overview (08/12/2016): Insulin pump in place Pain of foot 01/20/2016 06/01/2020 Injury of head 02/26/2015 03/03/2019 Thyroid activity decreased 01/08/2015 0 08/26/2018 Abnormal sexual function 01/08/2015 Cervicalgia 12/21/2014 10/21/2018 Knee pain 03/07/2013 06/01/2020 Benign colonic polyp 05/31/2012 019 Calculus of kidney 04/15/2012 9 Blood in urine 04/15/2012 10/21/2018 Encounters Date Type Department Care Team Description 11/27/2024 Telephone [facility] Director Of Gift Planning Care [address] [place] [address] Catrachito Schultz MD 11/26/2024 2:00 PM CDT Office Visit [facility] with [facility] [address] [place] [address] Ramiro Gonzalez PA S/P cervical spinal fusion; Spinal stenosis of cervical region 11/26/2024 1:17 PM CDT - 11/26/2024 11:59 PM CDT Hospital Encounter [facility] - Imaging [address] [place] [phone] S/P cervical spinal fusion; Spinal stenosis of cervical region; Numbness and tingling of right arm Discharge Disposition: Discharge to home or self care 11/20/2024 Orders Only [facility] with [facility] [address] [place] [address] Ramiro Gonzalez PA Numbness and tingling of right arm (Primary Dx); S/P cervical spinal fusion; Spinal stenosis of cervical region 10/29/2024 Telephone [facility] with [facility] [address] [place] [address] Anitra Riley [place] 10/28/2024 Telephone [facility] with [facility] [address] Medical Office [address] [place] [address] Anitra Riley [place] 10/21/2024 2:30 PM CDT Office Visit [facility] [address] [place] [address] [address] [place] [phone] Audie Redding MD Type 2 diabetes mellitus with hyperglycemia, with long-term current use of insulin (HCC) (Primary Dx); Essential hypertension; Mixed hyperlipidemia; Obesity (BMI 30-39.9) 10/21/2024 2:00 PM CDT Office Visit [facility] [address] [place] [address] [address] [place] [phone] Type 2 diabetes mellitus with hyperglycemia, with long-term current use of insulin (HCC) 10/16/2024 12:30 PM CDT Therapy [facility] [address] [place] [address] Cas Reyna MD S/P cervical spinal fusion; Numbness and tingling of right arm; Numbness of right foot 10/09/2024 Orders Only [facility] Orthopaedic Surgery [address] [place] [address] Fuad Diggs MD 10/06/2024 8:00 AM CDT Office Visit [facility] [address] [place] [phone] Fernie Saldana NP Subjective cognitive impairment (Primary Dx) 09/26/2024 Orders Only [facility] Director Of Gift Planning Care [address] [place] [address] Catrachito Schultz MD 09/19/2024 Orders Only [facility] Director Of Gift Planning Care [facility] [place] [address] Catrachito Schultz MD 09/19/2024 Telephone [facility] Director Of Gift Planning Care [facility] [place] [phone] Catrachito Schultz MD 09/12/2024 Orders Only [facility] Director Of Gift Planning Care [address] [place] [address] [address] [place] [address] Catrachito Schultz MD Type 2 diabetes mellitus with hyperglycemia, with long-term current use of insulin (HCC) (Primary Dx) 09/05/2024 Results Follow-Up [facility] [address] [place] [address] [place] [phone] Caroline Dillard RMA Surgical pathology from Last 3 Months Immunizations Immunization Administration Dates Next Due Influenza, Quadrivalent, Spl it, Intramuscular 03/15/2016 Influenza, Quadrivalent, Spl it, Preservative Free, Intramuscular 01/31/2023,02/03/2022,03/03/2021,02/03,02/14/2019,02/15/2018 Influenza, Trivalent, Preser vative Free, Intramuscular 02/12/2024,02/05/2016,02/04/2015,02/04 Influenza, Unspecified 02/04/2018,02/04/2017 Moderna SARS-CoV-2 Monovalen t Vaccination (12+ YRS) 06/08/2020,05/11/2020 Pneumococcal Conjugate PCV 13 03/15/2016 Pneumococcal Conjugate Pcv20 01/31/2023 Tdap 11/19/2014,10/28/2010 ZOSTER Recombinant 10/27/2022,11/18/2021 Surgical History Surgery Date Site/Laterality Comments EPIDURAL INJECTION LUMBOSACRAL 06/05/2016 N/A EPIDURAL INJECTION LUMBOSACRAL 05/12/2016 N/A GASTRIC RESTRICTION SURGERY 10/31/2016 Gastric sleeve APPENDECTOMY 1987 - 05/06/1988 HYSTERECTOMY 2002 - 05/06/2003 EYE SURGERY Laser surgery to both eyes/ doesn't recall date LUMBAR SPINE SURGERY 2000 - 05/06/2001 Lumbar Discectomy CERVICAL FUSION 2014 - 05/06/2015 CHOLECYSTECTOMY 1995 - 05/06/1996 SMALL INTESTINE SURGERY 2002 - 05/06/2003 due abscess / debridement / lysis of adhesions MENISCUS SURGERY 1986 - 05/06/1987 Right COLONOSCOPY 11/24/2021 ESOPHAGOGASTRODUODENOSCOPY 08/29/2016 LUMBAR SPINE SURGERY 2014 - 05/06/2015 Decompression with grafting- Fell/ due to injury ILIAC ARTERY STENT 06/07/2020 - 07/04/2020 Bilateral Aortic iliac bilateral common CYST REMOVAL 06/10/2021 Left Thigh cyst removal REPLACEMENT TOTAL KNEE Right partial Medical History Medical History Date Comments Hypothyroidism Hyperlipidemia Seasonal asthma DJD (degenerative joint dise ase), lumbar Abnormal ECG Cervical disc disease Depression Disc disorder of lumbar region Pain of lower extremity 04/14/2016 Near syncope 12/07/2016 Calculus of kidney 04/15/2012 Injury of head 02/26/2015 Dehydration 12/04/2016 History of knee problem 03/15/2016 History of torn meniscus of right knee History of gestational diabe gideon mellitus (GDM) 03/15/2016 History of gestational diabe gideon History of appendectomy 03/15/2016 History of appendectomy History of surgical procedure 03/15/2016 Hi story of dilatation and curettage History of cholecystectomy 03/15/2016 Histo ry of cholecystectomy History of pneumonia 03/15/2016 History of pneumonia History of cervical spinal surgery 03/15/2016 Status post cervical discectomy History of total hysterectom y with bilateral salpingo-oophorectomy (BSO) 03/15/2016 Status post FREDDIE- BSO History of surgical procedur e on eye proper using laser 03/15/2016 History of surgical procedur e on eye proper using laser History of insertion of insulin pump 03/15/[address] Weak 02/14/2019 Status post lumbar spine operation 03/15/2016 History of lumbar discectomy Gastric bypass status for obesity 12/04/2016 Morbid obesity with BMI of 4 0.0-44.9, adult (HCC) 02/13/2019 Benign colonic polyp 05/31/2012 Lumbago 04/14/2016 Mixed hyperlipidemia 12/16/2016 VÍCTOR (obstructive sleep apnea) cp ap GERD (gastroesophageal reflu x disease) Diabetes mellitus type I (HCC) i nsulin pump Obesity with body mass index (BMI) of 30.0 to 39.9 03/03/2019 PONV (postoperative nausea a nd vomiting) Gets pre-medicated with IV anti-emetics Lumbar radiculopathy 04/15/2016 LBBB (left bundle branch block) PAD (peripheral artery disease) Hypertension Family History Medical History Relation Name Comments Hypertension Brother 1 Jordin Hypertension; Alcohol abuse Brother 3 Adam Alcoholism; Ca use of : Alcoholism ADD / ADHD Brother 4 Luke ADD/ADHD; Thyroid disease Daughter Colon cancer Father Cancer, colon; Cause of : Cancer, colon Diabetes Maternal Grandfather Hypertension Maternal Grandfather Stroke Maternal Grandmother Alzheimer's disease Mother Hypertension Mother Hypertension; Alzheimer's disease Other Heart disease Paternal Grandmother Hypertension Sister 1 Rolanda Anesthesia problems Neg Hx Relation Name Status Comments Brother 1 Jordin Alive Brother 2 Jordin Alive Brother 3 Adam Brother 4 Luwally Alive Daughter Father Maternal Grandfather Maternal Grandmother Mother Alive Other Other great aunt Paternal Grandmother Sister 1 Rolanda Alive Sister 2 Yajaira Social History Tobacco Use Types Packs/Day Years Used Date Smoking Tobacco: Former Cigarettes 0.1 15 0 05/2005 - 05/2020 Smokeless Tobacco: Never Tobacco Cessation:Counseling Given: Not Answered Comments:Smoking History Packs/day: 10 Cigarettes Alcohol Use Standard Drinks/Week Comments Yes 0 (1 standard drink = 0.6 oz pur e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 11/12/2019 2:51 PM Care Teams Order Expediter Relationship Specialty Start Date End Date Catrachito Schultz MD [address] [facility] [address] [place] [address] PCP - General Internal Medicine 07/17/22 Roland Jerome MD [address] [place] [address] Surgeon Neurosurgery 05/07/14 Michael Mullen MD [address] [facility] [address] [place] [address] Surgeon Orthopedic Surgery 05/07/22 Unruly Borges PA [address] [place] [address] Physician Tax Evaluator Neurosurgery 07/04/22
--- OUTSIDE RECORDS SUMMARY | 2024-12-01 10:00 | XMS_ITS | Encounter Summary ---
Author Organization [facility] Address [address] [place] [address] Phone Care Team Providers Care Qualifications Examiner Name Role Phone Catrachito Schultz MD Primary Care Provider [phone] Catrachito Schultz MD Primary Care Provider [phone] Roland Jerome MD Unavailable [phone] Michael Mullen MD Unavailable [phone] Unruly Borges Unavailable [phone] Catrachito Schultz MD Primary Care Provider Encounter Details Date Type Department Care Team (Late st Contact Info) Description 05/08/2018 Telephone [facility] Cardiology [address] [facility] Advanced Medicine 8th [place] [address] [place] [address] Diego Blake MD [address] 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 Janelle BraggMontcalm 06/02/2021 06/06/2021 09/30/2021 3:05 AM C DT COVID: Suspected 08/27/2023 08/27/2023 08/27/2023 7:37 PM CDT COVID: Suspected 06/23/2024 06/23/2024 06/23/2024 5:51 PM MANAGEMENT TECH Influenza, adult 06/23/2024 06/23/2024 06/30/2024 3:07 AM MANAGEMENT TECH documented as of this encounter Care Teams Qualifications Examiner Relationship Specialty Start Date End Date Catrachito Schultz MD PCP - General 08/04/16 02/15/21 Catrachito Schultz MD PCP - General Internal Medicine 03/01/21 07/16/22 Catrachito Schultz MD [address] [facility] [address] [place] [address] PCP - General Internal Medicine 07/17/22 Roland Jerome MD [address] [facility] [address] [place] [address] Surgeon Neurosurgery 05/07/14 Michael Mullen MD [address] [facility] [address] [address] Surgeon Orthopedic Surgery 05/07/22 Unruly Borges PA [address] [facility] /[address] [place] [address] Physician Excellence Coach Neurosurgery 07/04/22 documented as of this encounter
--- OUTSIDE RECORDS SUMMARY | 2024-12-01 10:00 | XMS_ITS | Clinical Summary ---
Author Organization [facility] Address [address] [facility] [place] [address] Care Team Providers Care Stock Patcher Name Role Phone Catrachito Schultz MD Primary Care Provider [phone] Source Comments [facility],non-owned Affiliates and Associated Physician Practices is amultiple site organization consisting of ambulatory clinics and hospital sitesin [place], [place], [place] and [place]. This disclosure is being madepursuant to the Care Everywhere program and may not contain all information available regarding this patient. Last updated 18.[facility] Allergies Active Allergy Reactions Criticality Noted Date Comments Sulfa Drugs Urticaria,Rash High 09/24/2012 Medications * Be aware that medications may not be up to date on this document. Alwaysverify current medications with the patient. PROAIR HFA 108 (90 BASE) MCG/ACT inhaler 2 (two) puffs as needed 6 Active HUMALOG vial Administered via insulin pump 1.5 units per hour 6 Active VENKAT CONTOUR NEXT TEST test strip 7 Active buPROPion XL 24hr (WELLBUTRIN-XL) 300 MG tablet Take 1 (one) tablet by mouth every morning Active montelukast (SINGULAIR) 10 MG tablet Take 1 (one) tablet by mouth at bedtime Active lisinopril (PRINIVIL;ZESTR IL) 5 MG tablet Take 1 (one) tablet by mouth once daily Active vitamin D3 (CHOLECALCIFERO L) 125 MCG (5000 UT) capsule Take 1 (one) capsule by mouth once daily Active escitalopram (LEXAPRO) 5 MG tablet 1 Active fluticasone propionate (FLONASE) 50 MCG/ACT nasal spray [place] 1 (one) spray into each nostril once daily 1 Active rosuvastatin (CRESTOR) 40 MG tablet 1 Active levothyroxine (Synthroid) 112 MCG tablet Take 1 (one) tablet by mouth once daily 3 Active atenolol (Tenormin) 50 MG tablet 3 Active ALPRAZolam (Xanax) 0.25 MG tablet 3 Active pantoprazole EC (Protonix) 40 MG tablet Take 1 (one) tablet by mouth once daily Active Active Problems Problem Noted Date Diagnosed Date S/P laparoscopic sleeve gastrectomy 10/31/2016 Morbid obesity due to excess calories 08/03/2016 Controlled type 2 diabetes m ellitus without complication, with long-term current use of insulin 09/24/2012 Depression 09/24/2012 Hypothyroidism 09/24/2012 BBB (bundle branch block) 09/24/2012 Overview (09/24/2012): Left GERD (gastroesophageal reflux disease) 3 High cholesterol 09/24/2012 Family History Medical History Relation Name Comments Cancer Father colon Cancer Mother uterine Relation Name Status Comments Father Mother Social History Tobacco Use Types Packs/Day Years Used Date Smoking Tobacco: Former Cigarettes Q uit: 11/04/2014 Smokeless Tobacco: Never Quit: 11/04/2014 Tobacco Cessation:Ready to Q uit: Yes Alcohol Use Standard Drinks/Week Comments Yes 0 (1 standard drink = 0.6 oz pur e alcohol) 1 or 2 every couple of months Comments No Sex and Gender Information Value Date Recorded Sex Assigned at Not on file Legal Sex Female 6:23 AM ASSOCIATE PROFESSOR OF ENGLISH Gender Identity Not on file Sexual Orientation Not on file Last Filed Vital Signs Vital Sign Reading Time Taken Comments Blood Pressure 126/60 06/04/2023 1:29 PM ASSOCIATE PROFESSOR OF ENGLISH Pulse 74 06/04/2023 1:29 PM ASSOCIATE PROFESSOR OF ENGLISH Temperature 36.6 C (97.8 F) 06/04/2023 1:29 PM ASSOCIATE PROFESSOR OF ENGLISH Respiratory Rate 20 03/14/2019 8:15 AM ASSOCIATE PROFESSOR OF ENGLISH Oxygen Saturation 97% 06/04/2023 1:29 PM ASSOCIATE PROFESSOR OF ENGLISH Inhaled Oxygen Concentration - - Weight 98.4 kg (217 lb) 06/04/2023 1:29 PM ASSOCIATE PROFESSOR OF ENGLISH Height 162.6 cm (5' 4) 06/04/2023 1:29 PM ASSOCIATE PROFESSOR OF ENGLISH Body Mass Index 37.25 06/04/2023 1:29 PM ASSOCIATE PROFESSOR OF ENGLISH Plan of Treatment Upcoming Encounters Date Type Department Care Team (Late st Contact Info) Description 02/16/2025 8:45 AM CDT Office Visit [facility] [address] [facility], [facility] [address] [place] [address] Leora Taylor, WEB CONTENT MANAGER-LEATHER DRIER [address] [facility] [address] [place] [address] Health Maintenance Due Date Last Done Comments COLOGUARD (AGES 45-75) - COLON CA SCREENING 1964 COLON MONITORING 1964 COLONOSCOPY - COLON CA SCREENING 1964 CT COLONOGRAPHY - COLON CA SCREENING 1964 Colorectal Cancer Screening 1964 FIT - COLON CA SCREENING 1964 FLEX SIG - COLON CA SCREENING 1964 HIV SCREENING 1979 HEPATITIS C SCREENING 05/03/1982 DTAP/TDAP/TD VACCINES (1 - Tdap) 1983 PNEUMOCOCCAL VACCINE 50+ (1 of 2 - PCV) 1983 ZOSTER VACCINE (1 of 2) 2014 DIABETES-SERUM CREATININE 11/28/20172016, 11/27/2016, 11/02/2016, Additional history exists DIABETES RETINOPATHY SCREENING 12/09/2018 DIABETES-FOOT EXAM WITH MONOFILAMENT 12/09/2018 DIABETES-HGB A1C 06/28/2023 03/28/2023, , 08/24/2020, Additional history exists COVID-19 VACCINE ( season) 2024 06/08/2020, 05/11/2020 MAMMOGRAM 03/29/2024 03/29/2022, 01/06, 01/26/2021, Additional history exists DEPRESSION SCREENING 2024 DIABETES - URINE PROTEIN SCREENING 2024 Respiratory Syncytial Virus (RSV) Vaccine Pt: or over 60 yrs (1 - Risk 60-74 years 1-dose series) 2024 INFLUENZA VACCINE (#1) 2025 3, 02/03/2022, 03/03/2021, Additional history exists HEPATITIS B VACCINE Aged Out No longe r eligible based on patient's age to complete this topic HIB VACCINE Aged Out No longer eligi ble based on patient's age to complete this topic HPV VACCINE Aged Out No longer eligi ble based on patient's age to complete this topic MENINGOCOCCAL (Group B) VACCINE SHARED DECISION-MAKING Aged Out No longer eligible based on patient's age to complete this topic MENINGOCOCCAL GROUPS A/C/Y/W VACCINE Aged Out No longer eligible based on patient's age to complete this topic Procedures Procedure Name Priority Date/Time Associated Diagnosis Comments BASIC METABOLIC PANEL (CALCIUM TOTAL) AM Draw 11/28/2016 3:38 AM CDT Weakness generalized HEMOGLOBIN A1C Routine 11/01/2016 4:00 AM CDT from Last 3 Months or Most Recently Relevant to Health Maintenance Results * (ABNORMAL) BASIC METABOLIC PANEL (CALCIUM TOTAL) (11/28/2016 3:38 AM CDT) Glucose 81 74 - 106 mg/dL 11/28/2016 4:10 AM CDT [facility] Sodium 141 136 - 145 mmol/L 11/28/2016 4:10 AM CDT [facility] Potassium 3.3(L) 3.5 - 5.1 mmol/L 11/28/2016 4:10 AM CDT [facility] Chloride 108(H) 98 - 107 mmol/L 11/28/2016 4:10 AM CDT [facility] CO2 27 22 - 31 mmol/L 11/28/2016 4:10 AM CDT [facility] Calcium 8.3(L) 8.5 - 10.1 mg/dL 11/28/2016 4:10 AM CDT [facility] Anion Gap 6(L) 8 - 16 mmol/L 11/28/2016 4:10 AM CDT [facility] BUN 9 7 - 21 mg/dL 11/28/2016 4:10 AM CDT [facility] Creatinine 0.50 0.50 - 1.30 mg/dL 11/28/2016 4:10 AM CDT [facility] eGFR by MDRD >60 >60 mL/min/1.7 3m2 11/28/2016 4:10 AM CDT [facility] eGFR by MDRD >60 >60 mL/min/1.7 3m2 11/28/2016 4:10 AM CDT [facility] Blood BLOOD SPECIMEN / Unknown Venipuncture / Unknown 11/28/2016 3:38 AM CDT 11/28/2016 3:44 AM CDT us Ubaldo Betts MD LAB - CHEMISTRY ORDERABLES Fi nal Result Performing Organization Address [facility] Co de Phone Number [facility] [address] [place] [address] * (ABNORMAL) HEMOGLOBIN A1C (11/01/2016 4:00 AM CDT) Hemoglobin A1c 8.0(H) 4.2 - 6.3 % 11/01/2016 5:48 AM CDT [facility] Estimated Average Glucose 183 mg/dL 11/01/2016 5:48 AM CDT [facility] Whole Blood BLOOD SPECIMEN WITH EDTA / Unknown 11/01/2016 4:00 AM CDT 11/01/2016 5:25 AM CDT Killian Vyas APRN-LEATHER DRIER LAB - CHEMISTRY ORDERABLE S Final Result Performing Organization Address City/[facility] Co de Phone Number [facility] [address] [place] [address] from Last 3 Months or Most Recently Relevant to Health Maintenance Insurance [facility] Member Subscriber Plan / Payer (Ef fective 2019-Present) Name:Andrew Roque Relation to Subscriber:Self Name:Andrew Roque Payer ID:[id number] (NAIC) Type:O Address: [address] Member Subscriber Plan / Payer (Ef fective 2019-Present) Name:Andrew Roque Relation to Subscriber:Self Name:Andrew Roque Payer ID:[id number] (NAIC) Type:HMO Address: [place] [id number] SELF PAY NO INSURANCE Member Subscriber Plan / Payer (Ef fective 2015-Present) Name:Andrew Roque Relation to Subscriber:Self Name:Andrew Roque Payer ID:Not on file Group ID:Not on file Type:Self Pay Address: [place], [place] Advance Directives * Full Code (Latest Code Status on File) Date Activated Date Inactivated Comments 11/27/2016 10:13 PM 11/28/2016 2:36 PM * Full Code Date Activated Date Inactivated Comments 10/31/2016 11:53 AM 11/02/2016 1:16 PM Care Teams Stock Patcher Relationship Specialty Start Date End Date Catrachito Schultz MD PCP - General Internal Medicine 07/24/16
--- OUTSIDE RECORDS SUMMARY | 2024-12-01 10:00 | XMS_ITS | Referral Summary ---
Author Organization [facility] Address [address] [place] [address] Care Team Providers Care Powersaw Supervisor Name Role Phone Roland Jerome MD Unavailable [phone] Michael Mullen MD Unavailable Unruly Borges Unavailable [phone] Catrachito Schultz MD Primary Care Provider [phone] Encounters Date Type Department Care Team Description 11/27/2024 Telephone [facility] [address] [place] [address] Catrachito Schultz MD 11/26/2024 1:17 PM CDT - 11/26/2024 11:59 PM CDT Hospital Encounter [facility] - Imaging [address] [place] [address] S/P cervical spinal fusion; Spinal stenosis of cervical region; Numbness and tingling of right arm Discharge Disposition: Discharge to home or self care 11/26/2024 2:00 PM CDT Office Visit [facility] with [facility] [address] [place] [address] Ramiro Gonzalez PA S/P cervical spinal fusion; Spinal stenosis of cervical region 11/20/2024 Orders Only [facility] with [facility] [address] [place] [address] Ramiro Gonzalez PA Numbness and tingling of right arm (Primary Dx); S/P cervical spinal fusion; Spinal stenosis of cervical region 10/29/2024 Telephone [facility] [address] [place] [phone] Anitra Riley [place] 10/28/2024 Telephone [facility] [address] Medical Office [address] [place] [phone] Anitra Riley [place] 10/21/2024 2:00 PM CDT Office Visit [facility] [address] [place] [phone] Type 2 diabetes mellitus with hyperglycemia, with long-term current use of insulin (HCC) 10/21/2024 2:30 PM CDT Office Visit [facility] [place] [phone] Audie Redding MD Type 2 diabetes mellitus with hyperglycemia, with long-term current use of insulin (HCC) (Primary Dx); Essential hypertension; Mixed hyperlipidemia; Obesity (BMI 30-39.9) 10/16/2024 12:30 PM CDT Therapy [facility] [address] [place] [address] Cas Reyna MD S/P cervical spinal fusion; Numbness and tingling of right arm; Numbness of right foot 10/09/2024 Orders Only [facility] [address] [facility] [address] [place] [phone] Fuad Diggs MD 10/06/2024 8:00 AM CDT Office Visit [facility] [address] 6th [address] [place] [address] Fernie Saldana NP Subjective cognitive impairment (Primary Dx) 09/26/2024 Orders Only [facility] [address] [place] [phone] Catrachito Schultz MD 09/19/2024 Orders Only [facility] [address] [place] [phone] Catrachito Schultz MD 09/19/2024 Telephone [place] [address] [facility] [address] [place] [phone] Catrachito Schultz MD 09/12/2024 Orders Only [place] [address] [facility] [address] [place] [phone] Catrachito Schultz MD Type 2 diabetes mellitus with hyperglycemia, with long-term current use of insulin (HCC) (Primary Dx) 09/05/2024 Results Follow-Up [facility] [address] 12th [place] [address] [place] [phone] Caroline Dillard RMA Surgical pathology from Last 3 Months Allergies Active Allergy Reactions Criticality Noted Date [...] 60 tablet 04/08/20 24 Active blood-glucose sensor ([employer] G7 Sensor) device USE AND CHANGE SENSOR [...] Take by mouth every morning 025 Discontin ued(Patie nt Reported) Active Problems Problem Noted Date [...] 11/26/2023 Assessment & Plan (03/24/2024 10:52 AM CIRCULATOR): Worsening. Patient has been getting quarterly steroid [...] 04/18/2023 Assessment & Plan (04/18/2023 11:20 AM CIRCULATOR): Labs including an amylase and lipase will [...] (06/12/2022): Added automatically from request for surgery [id number] Asthmatic bronchitis 04/17/2022 Assessment & Plan (06/22/2022 9:42 PM CIRCULATOR): Patient is still struggling with a post viral cough and wheezing. She is on Symbicort in addition to nebulized albuterol and albuterol MDI eyes. She uses her nebulizer at least twice a day in the [place] when she is at school. Assessment & Plan (04/17/2022 11:09 AM CIRCULATOR): Patient will continue nebulizer therapy. She will complete her steroid taper and has already completed her antibiotics. At this time I do not believe she would benefit from additional antibiotics. She can use [id number] cough suppressants as needed. A CBC and [...] diagnosed. Assessment & Plan (03/14/2021 12:03 PM CIRCULATOR): At this time the patient scores well on her slums test. [facility] will be made for further evaluation and treatment. Peripheral vascular disease (CMS/HCC) 05/11/2020 Assessment & Plan (05/19/2024 2:57 PM CIRCULATOR): Stable continue antiplatelet therapy Assessment & Plan (07/30/2023 4:17 PM CDT): Stable. Continue antiplatelet therapy. Assessment & Plan (06/22/2022 9:42 PM CIRCULATOR): Stable. Continue antiplatelet therapy. Assessment & Plan [...] year Assessment & Plan (06/01/2020 7:26 AM CIRCULATOR): Healing cardiac catheterization sites groins bilaterally. Continue aspirin. Follow-up with vascular surgery 06/22/20 with arterial ultrasound schedule that day Assessment & Plan (05/27/2020 9:25 AM CIRCULATOR): - OR 05/27 for kissing iliac stents 05/27 - Bedrest x2 hours - Aspirin daily - OOB this afternoon, pérez out at that time Assessment & Plan (05/16/2020 7:59 PM CIRCULATOR): Patient has evidence of peripheral artery disease. A referral to vascular Assessment & Plan (05/12/2020 8:56 AM CIRCULATOR): No claudication. Has appointment with vascular surgery. Essential hypertension 12/01/2019 Assessment & Plan (10/21/2024 2:50 PM CDT): At goal on current therapy. Assessment & Plan (07/03/2024 12:42 PM CIRCULATOR): Mildly elevated today. Will monitor on current regimen. Assessment & Plan (03/11/2024 12:35 PM CIRCULATOR): At goal on current therapy. Assessment & Plan (11/23/2023 3:51 PM CDT): At goal on current therapy. Assessment & Plan (07/30/2023 9:17 AM CDT): At goal on current therapy. Assessment & Plan (03/28/2023 10:14 AM CIRCULATOR): Having orthostatic symptoms at home. Halve atenolol [...] therapy. Assessment & Plan (06/29/2022 10:37 AM CIRCULATOR): Continue lisinopril and atenolol. Follow low-sodium diet Assessment & Plan (03/29/2022 12:35 PM CIRCULATOR): The patient was instructed to follow a [...] recommended. Assessment & Plan (05/23/2021 10:00 AM CIRCULATOR): Continue lisinopril and atenolol. Low-salt diet Assessment & Plan (01/26/2021 9:27 AM CDT): Stable on Lisinopril and atenolol. Continue Low salt diet. Assessment & Plan (08/24/2020 10:25 PM CDT): Stable on lisinopril and atenolol. Continue low-salt diet Assessment & Plan (06/01/2020 7:26 AM CIRCULATOR): Blood pressure is well controlled. Reviewed low sodium diet and hidden sources of sodium in the diet to avoid. Assessment & Plan (05/16/2020 7:56 PM CIRCULATOR): Blood pressure is still not adequately controlled. Will continue to work on blood pressure control. Assessment & Plan (05/12/2020 8:55 AM CIRCULATOR): Normotensive. Continue current regimen. Assessment & Plan (12/01/2019 1:42 PM CDT): Well controlled. Continue current regimen Hx of colonic polyp 11/05/2019 Overview (11/05/2019): Added automatically from request for surgery [id number] Annual physical exam 03/09/2019 Assessment & Plan [...] provided. Assessment & Plan (03/09/2019 5:04 PM CIRCULATOR): Comprehensive laboratory studies will be obtained. The [...] 02/13/2019 Assessment & Plan (03/24/2024 10:52 AM CIRCULATOR): Continue with a prudent diet and exercise [...] Plan (07/17/2022 10:20 AM CDT): Referred to tools programmer. Assessment & Plan (06/22/2022 9:43 PM CIRCULATOR): BMI Follow-up includes: nutrition counseling, exercise counseling and education provided. Patient reports that she is monitoring her oral intake and struggles to lose weight despite restricting her calories. Assessment & Plan (06/16/2022 8:36 AM CIRCULATOR): BMI Follow-up includes: nutrition counseling, exercise counseling and education provided. Assessment & Plan (04/17/2022 11:10 AM CIRCULATOR): Patient has been struggling to get her BMI under control. At this time she will continue with a prudent diet. Assessment & Plan (03/29/2022 8:12 AM CIRCULATOR): BMI Follow-up includes: nutrition counseling, exercise counseling and education provided. Assessment & Plan (02/03/2022 7:55 AM CDT): BMI Follow-up includes: nutrition counseling, exercise counseling and education provided. Assessment & Plan (11/18/2021 7:48 AM CDT): BMI Follow-up includes: nutrition counseling, exercise counseling and education provided. Assessment & Plan (06/02/2021 7:52 AM CIRCULATOR): BMI Follow-up includes: nutrition counseling, exercise counseling and education provided. Assessment & Plan (03/14/2021 8:03 AM CIRCULATOR): BMI Follow-up includes: nutrition counseling, exercise counseling [...] ahead and start the metformin that her commercial sales manager prescribed Assessment & Plan (08/24/2020 10:26 PM CDT): Counseled on healthy diet and regular physical activity Metformin. Trial of Trulicity next visit Assessment & Plan (06/22/2020 9:49 AM CIRCULATOR): BMI Follow-up includes: nutrition counseling, exercise counseling and education provided. Assessment & Plan (05/31/2020 1:34 PM CIRCULATOR): BMI Follow-up includes: nutrition counseling, exercise counseling and education provided. Assessment & Plan (05/05/2020 1:14 PM CIRCULATOR): BMI Follow-up includes: nutrition counseling, exercise counseling [...] prior with inpatient evaluation. - Admission to [facility] for exercise stress test, TTE and monitoring - 30-day arrhythmia monitoring if obstructive CAD cardiac workup is unrevealing - Pt is agreeable to this plan Fatigue 11/16/2017 Assessment & Plan (07/17/2024 4:30 PM CDT): Patient reports severe exhaustion. We will hydrate aggressively today in the office and see if that will help. Assessment & Plan (05/19/2024 2:56 PM CIRCULATOR): She is complaining of excessive fatigue since the time of her surgery. At this time a CBC and iron profile will be checked. Assessment & Plan (01/31/2023 9:39 AM CDT): Patient notes quite a bit of fatigue despite getting a restful night's sleep. At this time labs including an iron profile will be checked. Assessment & Plan (03/09/2019 5:05 PM CIRCULATOR): Patient him most of her labs drawn [...] type Assessment & Plan (03/24/2024 10:50 AM CIRCULATOR): A CBC will be obtained today patient [...] loss. Assessment & Plan (06/21/2017 9:21 AM CIRCULATOR): encourage to fu pulmonary for sleep evaluation as scheduled encourage to use cpap as rx education risk benefits side affects of nonadherance Acquired hypothyroidism 03/15/2016 Overview (08/12/2016): Other specified hypothyroidism Assessment & Plan (05/19/2024 2:55 PM CIRCULATOR): Stable on replacement labs will be obtained Assessment & Plan (10/17/2023 10:53 AM CDT): On replacement. Labs will be obtained today. Assessment & Plan (08/28/2023 12:53 PM CDT): Her thyroid dose was recently increased 2.1 2 5. A TSH and T4 will be checked Assessment & Plan (04/18/2023 11:20 AM CIRCULATOR): Labs will be obtained with a TSH refluxing to T4. Assessment & Plan (01/31/2023 9:39 AM CDT): On levothyroxine. A TSH will be obtained today. She has been stable. Assessment & Plan (10/27/2022 12:56 PM CDT): Stable on replacement continue levothyroxine Assessment & Plan (06/29/2022 10:36 AM CIRCULATOR): Clinically and biochemically euthyroid. Continue levothyroxine 112 mcg daily. Assessment & Plan (02/05/2022 9:20 PM CDT): Continue levothyroxine 112 mcg daily. Assessment & Plan (11/23/2021 1:19 PM CDT): Continue levothyroxine 112 mcg daily. Assessment & Plan (11/18/2021 9:46 AM CDT): A TSH was ordered Assessment & Plan (05/23/2021 9:59 AM CIRCULATOR): Clinically and biochemically euthyroid. TSH 1.18. Continue levothyroxine 112 mcg daily. TSH annually. TSH was 0.3-4.2. Assessment & Plan (01/26/2021 9:24 AM CDT): Clinically and biochemically euthyroid. Continue levothyroxine 112 mcg once daily. TSH annually. Assessment & Plan (08/24/2020 10:17 PM CDT): Clinically and biochemically euthyroid. Continue levothyroxine 112 mcg daily. TSH annually Assessment & Plan (05/12/2020 8:51 AM CIRCULATOR): Clinically and biochemically euthyroid. Continue levothyroxine 112 mcg daily. TSH annually. Assessment & Plan (12/01/2019 1:41 PM CDT): Biochemically euthyroid. Continue levothyroxine 88 mcg daily. TSH annually. Assessment & Plan (11/19/2019 11:09 AM CDT): On replacement stable. Assessment & Plan (03/17/2019 10:55 AM CIRCULATOR): Biochemically euthyroid. Continue levothyroxine 112 mcg daily. TSH Q 6-12 months. Assessment & Plan (03/09/2019 5:05 PM CIRCULATOR): Recent TSH was normal Assessment & Plan (10/21/2018 8:39 AM CDT): Clinically euthyroid being followed by Endocrinology. Assessment & Plan (08/26/2018 4:07 PM CDT): Biochemically euthyroid. TSH is 0.6. Continue levothyroxine 112 mcg daily. TSH Q 6-12 months. Assessment & Plan (06/11/2018 10:27 AM CIRCULATOR): A TSH will be checked. Assessment & Plan (06/21/2017 9:22 AM CIRCULATOR): Stable Taking medication as prescribed. Assessment & Plan (03/15/2017 11:50 AM CIRCULATOR): TSH was 8.2 in October 2016. Levothyroxine [...] type Assessment & Plan (05/19/2024 2:57 PM CIRCULATOR): Stable follow-up with Ophthalmology Assessment & Plan (07/30/2023 4:15 PM CDT): Stable. Follow-up with Ophthalmology. Assessment & Plan (06/22/2022 9:43 PM CIRCULATOR): Continue close follow-up with Ophthalmology. Patient has been stable. Assessment & Plan (11/18/2021 9:45 AM CDT): Follow-up with Ophthalmology. Stable. Assessment & Plan (06/06/2021 1:31 PM CIRCULATOR): Continue close ophthalmological follow-up. Stable Assessment & Plan (08/30/2020 10:11 AM CDT): Follow-up with Ophthalmology. Assessment & Plan (12/01/2019 1:42 PM CDT): Emphasized importance of tight glycemic control Assessment & Plan (11/19/2019 11:09 AM CDT): Patient is due for diabetic eye exam Assessment & Plan (10/21/2018 8:42 AM CDT): Followed by Ophthalmology eye exam up-to-date. Assessment & Plan (06/11/2018 10:27 AM CIRCULATOR): She was just seen by retina and has stable diabetic proliferative retinopathy. Gastroesophageal reflux disease with apnea 03/15 Overview (08/12/2016): GERD with apnea Assessment & Plan (11/18/2021 9:45 AM CDT): Controlled with pantoprazole Moderate persistent asthma 03/15/2016 Overview (08/12/2016): Moderate persistent asthma without complication Assessment & Plan (07/03/2024 12:43 PM CIRCULATOR): Per asthma specialist. Assessment & Plan (10/21/2018 [...] 11/30/2015 Assessment & Plan (06/22/2022 10:57 PM CIRCULATOR): At this time the patient is having [...] 06/17/2015 Assessment & Plan (05/19/2024 2:57 PM CIRCULATOR): Status post cervical decompression. She still has [...] surgery Assessment & Plan (06/22/2022 9:40 PM CIRCULATOR): Patient has seen Dr. Bolton in the [...] exams. Assessment & Plan (07/03/2024 12:43 PM CIRCULATOR): A1c above goal. Stop compounded Mounjaro and switch to Ozempic. Increase the dose gradually every 4 weeks. I tightened her ICR's to 4.5 from 5 and increased all basal rates to 1.5 Units/hr. She met with our CDE today to increase the limits on her insulin delivery on the pump. Assessment & Plan (05/19/2024 2:56 PM CIRCULATOR): Blood sugars have been under good control labs including an A1c will be checked Assessment & Plan (03/24/2024 11:48 AM CIRCULATOR): Patient was recently evaluated by her commercial sales manager and reports that her A1c was 7.2. At this time she is medically stable to proceed with a partial knee replacement. Continue Mounjaro 7.5 mg weekly Assessment & Plan (03/11/2024 12:36 PM CIRCULATOR): A1c near goal. I encouraged accurate and [...] exams. Assessment & Plan (04/18/2023 11:19 AM CIRCULATOR): Patient is going to go back on Ozempic and see if we can get her to tolerate it. A prescription for Zofran was given previously to help with nausea. She will use that as needed. Assessment & Plan (03/28/2023 1:09 PM CIRCULATOR): Steroids have caused the elevation in her [...] educator. Assessment & Plan (06/29/2022 10:34 AM CIRCULATOR): This is a 57-year-old female seen for [...] months. Assessment & Plan (06/22/2022 9:42 PM CIRCULATOR): Patient is scheduling a follow-up with Endocrinology. She will continue the use of her insulin pump and we will add a GLP1 her treatment regimen. A prescription for mounjaro has been sent to the pharmacy. Patient will continue close monitoring her sugar. Her A1c is 9. Her sugars are out of control. Assessment & Plan (04/17/2022 11:09 AM CIRCULATOR): Her sugars have not been well controlled with the addition of the steroids. Patient knows that she needs to stick to her diet and keep her blood sugars under control. Last A1c was 8.9. Assessment & Plan (03/29/2022 12:36 PM CIRCULATOR): Continue insulin pump. Patient believes that her [...] today. Assessment & Plan (05/23/2021 10:01 AM CIRCULATOR): Chronic, uncontrolled. Hemoglobin A1c was 8 8% [...] therapy. Assessment & Plan (03/11/2024 12:35 PM CIRCULATOR): At goal on current therapy. Assessment & Plan (11/23/2023 3:51 PM CDT): At goal on current therapy. Assessment & Plan (07/30/2023 9:17 AM CDT): Continue rosuvastatin. Check lipids. Assessment & Plan (03/28/2023 10:15 AM CIRCULATOR): At goal on current therapy. Assessment & Plan (12/13/2022 10:32 AM CDT): At goal on current therapy. Assessment & Plan (07/17/2022 10:17 AM CDT): At goal on current therapy. Assessment & Plan (06/29/2022 10:40 AM CIRCULATOR): Continue rosuvastatin. Follow low-fat diet Assessment & Plan (03/29/2022 12:36 PM CIRCULATOR): A fasting lipid profile will be obtained [...] medications. Assessment & Plan (05/23/2021 9:59 AM CIRCULATOR): Lab Results Component Value Date LDLCALC 28 08/30/2020 Stable. Continue rosuvastatin. Low cholesterol/low-fat diet Assessment & Plan (01/26/2021 9:24 AM CDT): At goal on rosuvastatin. Assessment & Plan (08/24/2020 10:35 PM CDT): Lab Results Component Value Date LDLCALC 64 06/21/2017 At goal on rosuvastatin. Low cholesterol/low-fat diet Assessment & Plan (06/01/2020 7:36 AM CIRCULATOR): Last LDL 77 on atorvastatin 40 mg daily. Triglycerides 239. LDL is likely underestimated since triglycerides are high. 40% lesion in the LAD by coronary catheterization. Increase atorvastatin to high-intensity dose 80 mg daily for risk reduction. Assessment & Plan (05/12/2020 8:52 AM CIRCULATOR): LDL at goal. Continue atorvastatin 40 mg daily. Assessment & Plan (12/01/2019 1:44 PM CDT): At goal. Continue atorvastatin. She is scheduled for labs next week Assessment & Plan (03/17/2019 10:56 AM CIRCULATOR): Well controlled. Continue atorvastatin. Resolved Problems Problem [...] Patient has an appointment to see her commercial sales manager next week. I have told her it was okay to stop the aspirin 1 week prior to surgery Perineal abscess 06/06/2021 11/18/2021 Assessment & Plan (06/06/2021 1:32 PM CIRCULATOR): Patient has been it evaluated by the surgeon and is medically stable to undergo surgery at this time. Sebaceous cyst 06/01/2021 11/18/2021 Overview (06/01/2021): Added automatically from request for surgery [id number] COVID-19 05/26/2021 11/18/2021 Memory impairment 05/03/2021 08/06/2023 Anxiety and depression 05/03/202111/18 Vertigo 03/14/2021 11/18/2021 Assessment & Plan (03/14/2021 12:04 PM CIRCULATOR): Patient has a follow-up with ENT in [...] diabetes mellitus, limited to breakdown of skin ([facility]) 06/01/2020 11/18/2021 Assessment & Plan (06/01/2020 7:28 AM CIRCULATOR): Scabbed ulcer left lateral heel. She will observe the ulcer closely. If ulcer does not heal with improved blood flow, she will follow up with Podiatry. 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 Reports intermittent flushing. No shortness of breath/wheezing or diarrhea. 24 hours urine HIAA ordered by Dr. Schultz. Will follow-up. Assessment & Plan (03/09/2019 5:06 PM CIRCULATOR): A 24 hour urine for 5 HIAA [...] 11/18/2021 Assessment & Plan (06/11/2018 10:25 AM CIRCULATOR): Patient had a transient episode of blurred vision and diplopia lasting over 12 hr. While her symptoms have improved workup is pending. Carotid Dopplers and MRI of the brain have been ordered. BMI 38.0-38.9,adult 03/15/2017 08/27/19 19 Assessment & Plan (06/11/2018 9:52 AM CIRCULATOR): BMI Follow-up includes: nutrition counseling, exercise counseling and education provided. Assessment & Plan (06/21/2017 9:23 AM CIRCULATOR): Body mass index is 37.93 kg/m . BMI Follow-up includes: nutrition counseling, exercise counseling and education provided. Had gastric sleeve. Assessment & Plan (03/15/2017 11:51 AM CIRCULATOR): Lost close to 50 lb status post sleeve gastrectomy. Continue high-protein, low carbs small frequent meals Increase physical activity as tolerated. Morbid obesity due to excess calories 12/16/2016 06/11/2018 Assessment & Plan (06/21/2017 9:21 AM CIRCULATOR): Obesity is unchanged. Discussed the patient's BMI. [...] unchanged. The patient was referred to the concrete gun operator. Lipids will be reassessed in 6 months. Assessment & Plan (08/26/2018 4:06 PM CDT): Well controlled on atorvastatin. Assessment & Plan (06/21/2017 9:22 AM CIRCULATOR): Lipid abnormalities are unchanged. Nutritional counseling was provided. Lipids will be reassessed in 6 months. Labs pending. Assessment & Plan (03/15/2017 11:49 AM CIRCULATOR): Off atorvastatin for the past few done [...] depression Assessment & Plan (06/22/2022 9:43 PM CIRCULATOR): Her poor diabetes control and obesity are feeling her depression. She denies any suicidal ideation. Assessment & Plan (11/18/2021 9:45 AM CDT): Her depression is stable on her current regimen. Work is very stressful. It does creating diet he. Assessment & Plan (06/06/2021 1:31 PM CIRCULATOR): Patient is doing reasonably well on her [...] be. Assessment & Plan (06/27/2020 4:37 PM CIRCULATOR): At this time her depression is not had a quickly controlled. We are going to increase the bupropion to 300 mg in the morning. Like to see the patient back in 6 weeks. Assessment & Plan (05/16/2020 7:58 PM CIRCULATOR): Patient is going to be placed on [...] needed. Assessment & Plan (06/11/2018 10:28 AM CIRCULATOR): Patient reports that her depression is under good control. She is going to continue current therapy. Assessment & Plan (06/21/2017 9:21 AM CIRCULATOR): Psychological condition is unchanged. Continue current treatment regimen. Psychological condition will be reassessed at the next regular appointment. Lumbar radiculopathy 04/15/2016 022 Assessment & Plan (03/14/2021 12:03 PM CIRCULATOR): Patient has no weakness in the muscles. [...] disorder Assessment & Plan (03/17/2019 11:02 AM CIRCULATOR): Stable on current regimen Mixed anxiety depressive [...] working. Assessment & Plan (06/21/2017 9:22 AM CIRCULATOR): Increase activity. Stick to prescribed nutrition plan, [...] hours. Assessment & Plan (06/01/2020 7:27 AM CIRCULATOR): Followed by endocrinology. Managed with insulin pump and CGM. Assessment & Plan (05/27/2020 9:25 AM CIRCULATOR): - Endo c/s for insulin pump management - Q4h blood glucose checks Assessment & Plan (05/12/2020 8:55 AM CIRCULATOR): Uncontrolled, hemoglobin A1c is 8.5%. Reviewed insulin [...] today. Assessment & Plan (03/17/2019 11:00 AM CIRCULATOR): 53 years old seen in follow-up for uncontrolled type 1 diabetes mellitus. Hemoglobin A1c is 8.2%. Insulin pump/CGM download reviewed and is scanned into patient's chart.: -fasting hyperglycemia -post breakfast and lunch hyperglycemia Plan. 1. Increase household assistant basal rate. 2. Increase insulin carb ratios at breakfast and lunch 3. Change daytime BGT to 100-120 mg/dL. 4. Send C GM data in 2 weeks. 5. Consistent carb diet. 6.GRAIN SAMPLER follow-up in 3 months Insulin pump settings: [...] hours. Assessment & Plan (03/09/2019 5:05 PM CIRCULATOR): A1c suggests poor control. At this time [...] months. Assessment & Plan (06/11/2018 10:26 AM CIRCULATOR): Patient reports that since using the free style leny blood sugars have been under better control. At the present time she has an upper respiratory tract infection and is producing of moderate amount of green sputum. Her sugars have been up in the 300s today. Assessment & Plan (06/21/2017 9:20 AM CIRCULATOR): Is followed by endocrinology. Labs pending Foot and eye exams are up to date. Assessment & Plan (03/15/2017 11:49 AM CIRCULATOR): 51 years old female seen in follow-up [...] 04/15/2012 9 Blood in urine 04/15/2012 10/21/2018 Immunizations Immunization Administration Dates Next Due Influenza, Quadrivalent, Spl it, Intramuscular 03/15/2016 Influenza, Quadrivalent, Spl it, Preservative Free, Intramuscular 01/31/2023,02/03/2022,03/03/2021,02/03,02/14/2019,02/15/2018 Influenza, Trivalent, Preser vative Free, Intramuscular 02/12/2024,02/05/2016,02/04/2015,02/04 Influenza, Unspecified 02/04/2018,02/04/2017 Moderna SARS-CoV-2 Monovalen t Vaccination (12+ YRS) 06/08/2020,05/11/2020 Pneumococcal Conjugate PCV 13 03/15/2016 Pneumococcal Conjugate Pcv20 01/31/2023 Tdap 11/19/2014,10/28/2010 ZOSTER Recombinant 10/27/2022,11/18/2021 Social History Tobacco Use Types Packs/Day Years [...] on file Legal Sex Female 4:16 AM CIRCULATOR Gender Identity Not on file Sexual Orientation Not on file 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 file Not on file Not on file Last Filed Vital Signs [...] 11/26/2024 1:36 PM CDT Plan of Treatment Not on file Medical Devices Implanted Type Area Railroad Crane Operator Device Identifier Shelf Expiration Date Model / Serial / Lot Advanced Vector Analyticst Avance Pay 12282 Icast 6mm 7fr 38mm 120cm Cover Catheter Introducer Balloon Expand - [id number] Implanted:Qty: 1 on 05/27/2020 by Freddie Lafleur MD at [facility] [employer]ent [employer] 10/26/2021 [id number] / / [employer] [id number] Icast 6mm 7fr 38mm 120cm Cover Catheter Introducer Balloon Expand - [id number] Implanted:Qty: 1 on 05/27/2020 by Freddie Lafleur MD at [facility] [employer]ent [employer] [id number] / / Hardware Cervical-L umbar Spine Description:cervical hardwar e [employer] 63514-52 Perclose 6fr Suture Mediate Knot Push Vascular Device Closure - [id number] Implanted:Qty: 1 on 05/27/2020 by Freddie Lafleur MD at [facility] [employer] 1267 3-0 3 / / Description:perclose [employer] 41397-90 Perclose 6fr Suture Mediate Knot Push Vascular Device Closure - [id number] Implanted:Qty: 1 on 05/27/2020 by Freddie Lafleur MD at [facility] [employer] 01/04/2022 1267 3-0 3 / / [id number] Description:perclose [employer] Putty Bone 1-2mm Granules 5cc Magnet 703-035-Us - [id number] Implanted:Qty: 1 on 08/28/2022 by Roland Jerome MD at [facility] N/A: Spine Cervical [employer] [id number] 09/04/2024 703-035 -US / / [id number] Orthofix Spinal Implants Disc Cervical M6-C Disc 6mm Medium Long Cdm-635l - [id number] Implanted:Qty: 1 on 08/28/2022 by Roland Jerome MD at [facility] [place] N/A: Spine Cervical [employer]ix Spinal Implants CDM-635 L / / Musculoskeletal Transplant [id number] 4-30mm Allograft Frozen Wpf32-29cr Wedge Graft Bone 265985 - [id number] - [id number] Implanted:Qty: 1 on 08/28/2022 by Roland Jerome MD at [facility] [place] N/A: Spine Cervical Musculoskeletal Transplant [id number] 12/31/2026 669417 / [id number] / Orthofix Spinal Implants Plate Thin Lordosis 22mm Ti 1 Level Loprfl Lock Midline - [id number] Implanted:Qty: 1 on 08/28/2022 by Roland Jerome MD at [facility] N/A: Spine Cervical Orth[employer]ix Spinal Implants 0122 / / Orthofix Spinal Implants Screw Bone 4mm 14mm 1.5mm Cetra Ti Aluminum Vanadium T10 Std 649 - [id number] Implanted:Qty: 2 on 08/28/2022 by Roland Jerome MD at [facility] N/A: Spine Cervical Orth[employer]ix Spinal Implants / / Orthofix Spinal Implants Screw Bone 4.5mm 14mm 1.5mm Cetra Ti Aluminum Vanadium T10 - [id number] Implanted:Qty: 1 on 08/28/2022 by Roland Jerome MD at [facility] N/A: Spine Cervical Orth[employer]ix Spinal Implants / / Orthofix Spinal Implants Screw Bone 4mm 14mm 1.5mm Cetra Ti Aluminum Vanadium T10 Std 37 - [id number] Implanted:Qty: 1 on 08/28/2022 by Roland Jerome MD at [facility] N/A: Spine Cervical Orth[employer]ix Spinal Implants 19-4814 / / Depuy Orthopaed[employer] Inc Smartset Medium Viscosity Cement 40gm Bone Sterile 3122-040 - [id number] Implanted:Qty: 1 on 04/08/2024 at [facility] Right: Knee [employer] 06/06/2025 3122-04 0 / / [id number] [employer] Cmpnt Fem 5 Std Knee Condyle Right Medial Left Lat 380441 - [id number] Implanted:Qty: 1 on 04/08/2024 at [facility] Right: Knee [employer] 12/06/2028 [id number] / [id number] / [id number] [employer] Bsplt Tibial Restoris 4 Knee Right Medial Left Lat Strl Mck 297384 - [id number] Implanted:Qty: 1 on 04/08/2024 at [facility] Right: Knee [employer] 10/23/2028 932836 / [id number] / [id number] [employer] Insert Mck Tibial X3 Onlay Size 4 X 8mm 497839-8-Q - [id number] Implanted:Qty: 1 on 04/08/2024 at [facility] Right: Knee [employer] 09/24/2028 698600- 1-E / / [id number] Explanted Type Area Railroad Crane Operator Device Identifier Shelf Expiration Date Model / Serial / Lot Orthofix Spinal Implants Screw Cervical 14mm Crp-014-04 - [id number] Explanted:Qty: 2 on 08/28/2022 by Roland Jerome MD at [facility] N/A: Spine Cervical Orth[employer]ix Spinal Implants CRP-014-04 [...] encounter for EGFR Routine 07/03/2024 10:37 AM CIRCULATOR Type 2 diabetes mellitus with hyperglycemia, with long-term current use of insulin (HCC) TSH Routine 05/19/2024 2:36 PM CIRCULATOR Type 2 diabetes mellitus with hyperglycemia, with long-term current use of insulin (HCC) Acquired hypothyroidism Fatigue, unspecified type B12 deficiency POCT LIPID PANEL Routine 03/11/2024 10:1 3 AM CIRCULATOR Type 2 diabetes mellitus with hyperglycemia, with [...] normal. 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 2. [...] Female Attending MD: Jarett Fajardo M.D. Room: [facility] ENDOSCOPY ROOM 03 Note Status: Finalized Procedure: [...] The scope was passed under direct vision.The [id number] was introduced through the anusand advanced to [...] compared to prior imaging studies performed at [facility] on 01/26/2021, 03/29/2022 and 08/03/2023. There are [...] compared to prior imaging studies performed at [facility] on 01/26/2021,03/29/2022 and 08/03/2023. There are scattered areas of fibroglandular density. There is no suspicious abnormality in either breast. Impression: There is no mammographic evidence of malignancy. Annual screening mammography is recommended. OVERALL FINAL ASSESSMENT: BI-RADS CATEGORY 1: Negative. us Self Screening Mammogram IMG MAMMO PROCEDURES Fi nal Result * eGFR (07/03/2024 10:37 AM CIRCULATOR) eGFR 86 >=60 mL/min/1. 73 m2 Comment: [...] reviewed 2021. Blood 07/03/2024 10:3 7 AM CIRCULATOR 07/03/2024 11:23 AM CIRCULATOR us Audie Redding MD LAB BLOOD ORDERABLES Fi nal Result SERGEY QUINTERO [facility] Department [place] [address] * TSH (05/19/2024 2:36 PM CIRCULATOR) Pathologist [facility] [place] Thyroid Stimulating Hormone 0.44 0.30 - 4.20 mcIUnit/mL Blood 05/19/2024 2:36 PM CIRCULATOR 05/19/2024 2:36 PM CIRCULATOR us Catrachito Schultz MD LAB BLOOD ORDERABLES Final Res ult SERGEY [facility] [address] [facility] Department [place] [address] * POCT lipid panel (03/11/2024 10:13 AM CIRCULATOR) Pathologist [facility] [place] Cholesterol, POC 100 mg/dL HDL, POC 55 mg/dL Triglycerides, POC 137 mg/dL LDL Cholesterol POC n/a mg/dL Chol/HDL Ratio, POC n/a Non-HDL Cholesterol, POC n/a mg/dL Cholesterol Total, POC 100 mg/dL Capillary blood 03/11/2024 1 0:13 AM CIRCULATOR Audie Redding MD POINT OF CARE TEST ORDE RABKEYON Final Result * Diabetic Eye Exam (10/10/2023 2:54 PM CDT) Historical Provider HEALTH MAINTENANCE Final Result * Albumin Creatinine Ratio, Urine (07/30/2023 9:42 AM CDT) [facility] Creatinine ur 31.5 Not Estab. mg/dL [facility] - 01 Microalbumin, ur <3.0 Not Estab. ug/mL [facility] - 01 Microalbumin/cre at ratio <10 0 - 29 mg/g creat [facility] - 01 Comment: Normal: 0 - 29 Moderately increased: 30 - 300 Severely increased: >300 Urine 07/30/2023 9:42 AM CDT 07/30/2023 Narrative [facility] - 07/31/2023 8:16 AM CDT Performed at: [facility] [id number] Appliance Worker: Gopi Cintron PhD, Phone: [phone] Audie Redding MD LAB URINE ORDERABLES Fi nal Result [facility] - 01 * Hepatitis C antibody (11/18/2021 9:52 AM CDT) [facility] Hep C Ab Nonreactive Nonreactive SERGEY BENNETT [...] last revised on 2019. Testing performed by: [facility], [facility] [facility], [place]., [address] Blood 11/18/2021 9:52 AM CDT 11/18/2021 1:51 PM CDT us Catrachito Schultz MD LAB MICROBIOLOGY - GENERAL ORD ERABLES Final Result [facility] [address] [facility]. 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
== END 2024-12-01 09:35 | disposition home or self-care (01) ==
PROVIDERS: Visit Provider Nurse Practitioner Family
DX: Z12.2 Encounter for screening for malignant neoplasm of respiratory organs (principal); Z87.891 Personal history of nicotine dependence
CPT/HCPCS: 71271